=== PATIENT | female | born 1965 | race Caucasian/White ===

== ENCOUNTER 2024-12-07 18:11 | Emergency (ER) | payer MEDICAID, SELFPAY ==
[2024-12-07 18:40] LABS: Collection Type, Urine Clean Catch
[2024-12-07 18:53] LABS: Bacteria,Urine Rare; Bilirubin,Urine Negative (Negative); Blood,Urine Negative (Negative); Clarity,Urine Clear (Clear/Hazy); Color,Urine Colorless (Lt Yel-Yel); Glucose, Urine 4+ (Negative); Ketones,Urine Negative (Negative); Leukocyte Esterase,Urine Negative (Negative); Nitrite,Urine Negative (Negative); PH,Urine 6.5 (5.0-7.0); Protein,Urine Negative (Neg - Trace); RBC,Urine 4 /hpf (0-3); Specific Gravity,Urine 1.030 (1.001-1.035); Squamous Epithelial Cell,Urine 11 /hpf (0-5); Urobilinogen,Urine Negative mg/dL (0.0-1.0); WBC,Urine 5 /hpf (0-5)
[2024-12-07 18:54] VITALS: BP 134/79; PULSE 100; RESP 20; TEMP 36.4; O2SAT 98
[2024-12-07 18:55] LABS: Amphetamine/Methamp Scrn,U Negative (Negative); Barbiturate Screen,Urine Negative (Negative); Benzodiazepines Screen,Urine Negative (Negative); Benzoylecgonine Screen, Ur Negative (Negative); Fentanyl Screen,Urine Negative (Negative); Opiate Screen,Urine Negative (Negative); THC Screen,Urine Negative (Negative)
--- NOTE | 2024-12-07 18:57 | XR_ITS ---
Examination: Knee, left, 3 views Technique: Knee AP, lateral, oblique 3 views Date and time of exam: December 07, 2024, 1905 hours INDICATIONS: Injury of the knee today, knee pain FINDINGS: No acute fracture. No dislocation No foreign body IMPRESSION: No acute fracture
--- NOTE | 2024-12-07 18:58 | PD.EDRME ---
Rapid Medical Screening Exam E Arrival date/time: 12/07/24 18:11 This is a case of 59-year-old female with history of diabetes came in in the emergency room due to high blood sugar and fall injury patient states that he she hit his head but no loss of consciousness currently complaining of left knee pain patient also having headache and dizziness persistence of the symptoms this patient decided to start consulted in the emergency room Chief Complaint: Fall Time Seen by Provider: 12/07/24 18:57 Vital signs: Vital Signs Temperature 97.6 F 12/07/24 18:54 Pulse Rate 100 12/07/24 18:54 Respiratory Rate 20 12/07/24 18:54 Blood Pressure 134/79 H 12/07/24 18:54 Pulse Oximetry (%) 98 12/07/24 18:54 Oxygen Delivery Method Room Air 12/07/24 18:54
[2024-12-07 19:32] LABS: Basophils # (Auto) 0.1 Thou/mm3 (0.0-0.2); Basophils % (Auto) 1 % (0-2.5); Eosinophils # (Auto) 0.2 Thou/mm3 (0.0-0.5); Eosinophils % (Auto) 3 % (0-10); Hematocrit 45.1 % (36.0-46.0); Hemoglobin 14.7 g/dL (12.0-16.0); Immature Granulocytes Auto 0.02 Thou/mm3 (0.00-0.00); Lymphocytes # (Auto) 2.1 Thou/mm3 (1.0-4.8); Lymphocytes % (Auto) 24 % (10-50); Mean Corpuscular HGB Conc 32.6 g/dl (31.0-37.0); Mean Corpuscular Hemoglobin 26.7 pg (25.0-35.0); Mean Corpuscular Volume 82 fL (80-100); Monocytes # (Auto) 0.6 Thou/mm3 (0.0-0.8); Monocytes % (Auto) 7 % (0-12); Neutrophils # (Auto) 5.6 Thou/mm3 (1.8-7.7); Neutrophils % (Auto) 66 % (37-80); Nucleated Red Blood Cell # 0.00 Thou/mm3 (0.00-0.00); Nucleated Red Blood Cell % 0 /100 WBC (0); Platelet Count 227 Thou/mm3 (140-440); RDW Standard Deviation 47.1 fL (36.4-46.3); Red Blood Count 5.51 Miln/mm3 (4.00-5.20); White Blood Count 8.6 Thou/mm3 (3.6-11.0)
[2024-12-07 20:02] LABS: Alanine Aminotransferase < 7 U/L (10-49); Albumin, Serum 4.5 gm/dL (3.5-5.0); Albumin/Globulin Ratio 1.5 (1.2-2.2); Alcohol, Blood Medical < 3.0 mg/dL (0-10.0); Alkaline Phosphatase 150 U/L (46-116); Anion Gap 13 (7-16); Aspartate Amino Transferase 12 U/L (0-34); BUN/Creatinine Ratio 8 Ratio (12-20); Bilirubin,Total < 0.2 mg/dL (0.3-1.2); Blood Urea Nitrogen 8 mg/dL (9-23); Calcium 9.6 mg/dL (8.3-10.6); Calcium (Corrected) 9.6 mg/dL (8.5-10.1); Carbon Dioxide 23.5 mMol/L (20.0-31.0); Chloride 100 mMol/L (98-107); Creatinine (Component) 1.0 mg/dL (0.6-1.3); Globulin 3.0 gm/dL (2.3-3.5); Glucose 321 mg/dL (74-106); Osmolality,Calculated 282 (275-295); Potassium 3.9 mMol/L (3.4-5.1); Sodium 136 mMol/L (136-145); Total Protein 7.5 gm/dL (5.7-8.2); eGFR > 60 See Note
--- NOTE | 2024-12-07 21:40 | EDNOTE_ITS ---
ED Fall Injury RME/HPI General Chief Complaint: Fall Stated Complaint: Fell 2 days ago, states blood sugar was 458 Time Seen by Provider: 12/07/24 18:57 Arrival date/time: 12/07/24 18:11 RME / HPI RME / HPI Narrative: 12/07/24 18:11 This is a case of 59-year-old female with history of diabetes came in in the emergency room due to high blood sugar and fall injury patient states that he she hit his head but no loss of consciousness currently complaining of left knee pain patient also having headache and dizziness persistence of the symptoms this patient decided to start consulted in the emergency room DR. VICENTE MAIN ED EVALUATION: Patient reports Hx of fully controlled DM off medication for extended period of time presents after falling 2 days ago striking right lateral chest and head. No LOC, neck pain, or RUE radiculopathy. Denies vomiting. PMH: Type II DM PSH: None Allergies: None reported Social: Non-drinker, Non-smoker, No illicit drug use Related Data Previous Rx's ?Medication ?Instructions ?Recorded ibuprofen 600 mg tablet 600 mg PO Q6H #30 tabs 05/09 acetaminophen 325 mg tablet 650 mg (2 x 325 mg) PO QID #30 tabs 12/07/24 (Tylenol) Allergies Allergy/AdvReac Type Severity Reaction Status Date / Time lactose Allergy Mild GI UPSET Verified 12/07/24 18:16 latex Allergy Unknown SWELLING Verified 12/07/24 18:16 albuterol AdvReac Intermediate DIFF. Verified 12/07/24 18:16 BREATHING Review of Systems Review of Systems Systems Reviewed: All systems reviewed, normal except as documented Past Medical History Past Medical History ENDOCRINE: Positive Diabetes Mellitus Type 2 Social History SMOKING STATUS: Current every day smoker ED Exam Narrative Physical exam: GEN. APPEARANCE: The patient is alert awake oriented X-3 in no distress, lying down comfortably, does not look ill/toxic. Patient has good eye contact. Patient is cooperative. Appears slightly slow to response, although accurate. VITALS: All vitals were reviewed and the pulse ox is 98% on room air which is normal according to my interpretation. HEENT: Normocephalic, atraumatic. Pupils are equal and reactive. No nystagmus, normal fundosopic exam. Oral mucosa is moist. Patent Nares NECK: Supple, nontender, no thyromegaly, no meningismus, no JVD, no step offs CHEST: Symmetrical, atraumatic, and with equal expansion , Right lateral chest mildly tender to palpation, no deformity and no crepitus. CARDIOVASCULAR: Heart regular rhythm no murmur or gallop rub or extra beats. LUNGS: Clear to auscultation bilaterally with symmetrical chest rise. No laboring tachypnea or wheezing. No intercostal subcostal retraction. No rales and no rhonchi. ABDOMEN: Soft, flat, nontender to palpation, no guarding or rebound tenderness. There are no abnormal masses palpated. Active and normal bowel sounds. EXTREMITIES: Nontender. No edema. No cyanosis. Patient is able to move all 4 extremities well, with full ROM and good CSM. SKIN: Warm and dry, no jaundice or rashes noted. MUSCULOSKELETAL: No lubar or midline bony tenderness. There is no CVA tenderness. No paraspinal muscle spasm or tenderness. NEURO: Patient is FERGUSON x 4, Cranial nerves II through XII grossly intact. There is no focal neurologic deficits noted. GCS is 15, PNS and [employer] appear grossly intact. Gait slightly wide-based, normal finger to nose. PSYCHIATRIC: Patient is in normal mood and affect, cooperative, no SI or HI or hallucinations. Course Quality Measures none Orders Category Date Time Status CT head/brain wo con Stat Exams 12/07/24 22:18 Completed XR knee LT 3V Stat Exams 12/07/24 18:57 Completed Alcohol, Blood Medical Stat Lab 12/07/24 19:22 Completed CBC Stat Lab 12/07/24 19:22 Completed CMP [Comprehensive Metabolic Panel] Stat Lab 12/07/24 19:22 Completed Drug Screen,Urine Stat Lab 12/07/24 18:35 Completed Urinalysis Stat Lab 12/07/24 18:35 Completed Insulin Regular Med 12/07/24 22:17 Discontinued 6 unit SC X1 ONE Vital Signs Vital signs: Vital Signs Temperature 97.6 F 12/07/24 18:54 Pulse Rate 100 12/07/24 18:54 Respiratory Rate 20 12/07/24 18:54 Blood Pressure 134/79 H 12/07/24 18:54 Pulse Oximetry (%) 98 10/11/25 18:54 Oxygen Delivery Method Room Air 12/07/24 18:54 Fall MDM Narrative MDM Narrative:: Scribe Attestation: I, Lanny Valadez, am scribing for and in the presence of Dr. Vicente. Provider Notation: Although this document has been carefully reviewed, there may still be some phonetic and other typographical errors. These errors are purely grammatical due to imperfections in the software program and should not be construed in any way to compromise the substance of the patient's medical care during this visit. Patient reports Hx of fully controlled DM off medication for extended period of time presents after falling 2 days ago striking right lateral chest and head. No LOC, neck pain, or RUE radiculopathy. Please see PE findings. Laboratory markers including CBC, demonstrate HNH 14/45, platelet count, no left shift or bandemia. Serum chemistries essentially unremarkable. UA without evidence of infection although noted elevated glucose of 321. CO2 is normal at 23. Toxicology screen was negative. Alcohol is undetected. Knee x-rays obtained were unremarkable. EKG demonstrated equivocal lateral wall ST segment depression. Patient administered 6 units regular insulin subcutaneously. Will be referred for CT of the head/brain, and if unremarkable, will discharge to home with compliance emphasized. Final diagnoses include right chest wall contusion, chronic disequilibrium, hyperglycemia without ketosis, and medication non-compliance. Patient data External records reviewed:: [facility] previous records (Reviewed prior ED records from 05/10/23. Patient was seen for Atypical chest pain.) Clinical information provided by:: patient Social determinants that could affect healthcare access:: none Patient has the following chronic illnesses:: Type II DM How is presenting disease/condition affected by chronic disease/condition?: exacerbated by Evaluation data The following diagnostics were reviewed and interpreted by me:: lab results and radiology exam(s) Lab and/or radiology exams considered but not ordered:: None Interpretation Summary: RADIOLOGY Knee X-Ray: FINDINGS: No acute fracture. No dislocation No foreign body IMPRESSION: No acute fracture Medications / Prescriptions Medications or Prescriptions considered but not ordered:: None Medication administrations:: Medication Administration History Discontinued Medications Insulin Human Regular (Insulin Hum Regular 1 Unit/0.01 Ml (Per Unit)) 6 unit SC X1 ONE Stop: 12/07/24 22:18 Last Admin: 12/07/24 22:58 Dose: 6 unit Documented By: COURT Co-signed By: RUTH See above if any Consultations Consultation(s) initiated? (list below): No Diagnosis Fall Differential Diagnosis: syncope, compression fracture and other (Internal knee derangement, Knee sprain/strain) Most likely diagnosis given after review of the tests above:: Right chest wall contusion, chronic disequilibrium, hyperglycemia without ketosis, head contusion, and medication non-compliance. Admission Indicated Admission indicated?: not indicated Explain why admission is indicated or not indicated:: Patient does not meet admission criteria Admission Request Was there a request for admission?: No Disposition Plan Disposition Plan: Discharge Discharge Attestation Discharge Attestation: The patient and all family members were given an opportunity to ask questions and understood the discharge instructions. Discharge instructions specifically effects, indications for sooner follow up or return to the emergency department, and the expected course of current diagnosis. Patient condition: Stable Discharge Plan Plan Patient Disposition: HOME (Self Care) Discharge Disposition comment: Stable Prescriptions/Referrals Prescriptions/Med Rec: New acetaminophen [Tylenol] 325 mg tablet 650 mg PO QID Qty: 30 0RF No Action ibuprofen 600 mg tablet 600 mg PO Q6H Qty: 30 0RF Referrals: No Primary/Family,Physician [Primary Care Provider] - In 1 week Problem List Clinical Impression: Contusion of head, Chest wall contusion, Contusion of right chest wall, Disequilibrium, Hyperglycemia without ketosis, Noncompliance with medications Patient/Caregiver Discharge Instructions Discharge Activity: activity as tolerated Diet Instructions: Avoid simple sugars. Education Materials: High Blood Sugar (Hyperglycemia), ED Chest Wall Contusion Additional Instructions: Emphasize compliance regarding current oral medication regimen. Ice compresses to affected areas. Medication as directed. Print Language: Bruneian Stand Alone Forms: [employer] Award Info., Patient Portal Info Letter
--- NOTE | 2024-12-07 22:18 | XR_ITS ---
Examination: CT brain head without contrast. 2-D sagittal coronal reconstructions Date and time of exam: December 07, 2024 10:40 p.m. INDICATIONS: Patient fell 2 days ago with injury to the head, head pain CTDI: vol (mGy): 45.9 DLP: (mGycm): 977 Technique: Multiple CT axial sections of the brain have been obtained, 5 mm slice thickness. Contrast has not been administered. 2-D sagittal, coronal reconstructions have been obtained Low dose protocols were performed. One or more of the following dose reduction techniques were used; automated exposure control, adjustment of the mA and/or KV according to patient size, use of iterative reconstruction technique. Findings: No significant ventricular enlargement. Intra-axial or extra-axial hemorrhage density is not seen. No mass effect or midline shift Basal cisterns are not remarkable. Fourth ventricle is midline. Cranial vault intact. Impression: Negative for acute hemorrhage, mass effect or midline shift
[2024-12-07] MEDS: INSULIN HUM REGULAR 1 UNIT/0.01 ML (PER UNIT) 6 UNIT SC (22:58)
== END 2024-12-08 00:03 | disposition home or self-care (01) ==
PROVIDERS: Emergency Provider Emergency Medicine
DX: S00.93XA Contusion of unspecified part of head, initial encounter (principal); S20.211A Contusion of right front wall of thorax, initial encounter; E11.65 Type 2 diabetes mellitus with hyperglycemia; Z91.148 Patient's other noncompliance with medication regimen for other reason; W19.XXXA Unspecified fall, initial encounter
CPT/HCPCS: 36415; 70450; 73562; 80053; 80307; 80320; 81001; 85025; 99283; J1815; G0480

== ENCOUNTER 2024-12-22 14:59 | Inpatient (IN) | payer MEDICAID, SELFPAY ==
[2024-12-22 15:11] VITALS: BP 146/85; PULSE 86; RESP 18; TEMP 36.8; O2SAT 97; BMI 21.2
--- NOTE | 2024-12-22 15:22 | XR_ITS ---
Examination: CT brain head without contrast. 2-D sagittal coronal reconstructions Date and time of exam: December 22, 2024, 1534 hours INDICATIONS: Patient fell today with injury of the head, head pain CTDI: vol (mGy): 43.8 DLP: (mGycm): 992 Technique: Multiple CT axial sections of the brain have been obtained, 5 mm slice thickness. Contrast has not been administered. 2-D sagittal, coronal reconstructions have been obtained Low dose protocols were performed. One or more of the following dose reduction techniques were used; automated exposure control, adjustment of the mA and/or KV according to patient size, use of iterative reconstruction technique. Findings: No significant ventricular enlargement. Intra-axial or extra-axial hemorrhage density is not seen. No mass effect or midline shift Basal cisterns are not remarkable. Fourth ventricle is midline. Cranial vault intact. Impression: Negative for acute hemorrhage, mass effect or midline shift
--- NOTE | 2024-12-22 15:22 | EKG_ITS ---
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
--- NOTE | 2024-12-22 15:23 | EDRME_ITS ---
Rapid Medical Screening Exam [facility] Arrival date/time: 12/22/24 14:59 This is a 59-year-old female that comes into the emergency room with multiple complaints. Per patient family member patient keeps falling. Patient has had multiple falls at home. Patient states she feels imbalanced and dizzy. She states she is also nauseous. Patient complains of right hip pain as well. Patient complains of generalized weakness. Patient denies chest pain shortness of breath I have greeted and performed a focused initial assessment of this patient. Initial appropriate labs ordered at this time. A comprehensive ED assessment and evaluation of the patient and analysis of all test and completion of medical decision making process will be conducted by additional ED provider. Chief Complaint: Weakness Time Seen by Provider: 12/22/24 15:10 Vital signs: Vital Signs Temperature 98.3 F 12/22/24 15:11 Pulse Rate 86 12/22/24 15:11 Respiratory Rate 18 12/22/24 15:11 Blood Pressure 146/85 H 12/22/24 15:11 Pulse Oximetry (%) 97 12/22/24 15:11 Oxygen Delivery Method Room Air 12/22/24 15:11 Exam: Alert and awake, breathing even and unlabored skin warm and dry Clinical Impression: Stroke versus NC versus vertigo differential.
--- NOTE | 2024-12-22 15:25 | XR_ITS ---
Examination: Bilateral hips, AP pelvis, 5 views Technique: AP, lateral views both hips, AP pelvis, 5 views Exam date and time: December 22, 2024, 1531 hours INDICATIONS: Patient fell today with injury to both hips, bilateral hip pain. FINDINGS: No acute right or left hip fracture or hip dislocation Bones of the pelvis intact IMPRESSION: No acute hip or pelvic fracture Recommend 1 day follow-up if hip pain persists
[2024-12-22 16:05] LABS: Basophils # (Auto) 0.1 Thou/mm3 (0.0-0.2); Basophils % (Auto) 1 % (0-2.5); Eosinophils # (Auto) 0.2 Thou/mm3 (0.0-0.5); Eosinophils % (Auto) 3 % (0-10); Hematocrit 42.3 % (36.0-46.0); Hemoglobin 13.9 g/dL (12.0-16.0); Immature Granulocytes Auto 0.02 Thou/mm3 (0.00-0.00); Lymphocytes # (Auto) 1.7 Thou/mm3 (1.0-4.8); Lymphocytes % (Auto) 22 % (10-50); Mean Corpuscular HGB Conc 32.9 g/dl (31.0-37.0); Mean Corpuscular Hemoglobin 27.5 pg (25.0-35.0); Mean Corpuscular Volume 84 fL (80-100); Monocytes # (Auto) 0.5 Thou/mm3 (0.0-0.8); Monocytes % (Auto) 7 % (0-12); Neutrophils # (Auto) 5.3 Thou/mm3 (1.8-7.7); Neutrophils % (Auto) 68 % (37-80); Nucleated Red Blood Cell # 0.00 Thou/mm3 (0.00-0.00); Nucleated Red Blood Cell % 0 /100 WBC (0); Platelet Count 244 Thou/mm3 (140-440); RDW Standard Deviation 49.1 fL (36.4-46.3); Red Blood Count 5.05 Miln/mm3 (4.00-5.20); White Blood Count 7.9 Thou/mm3 (3.6-11.0)
[2024-12-22 16:15] LABS: INR 0.9 (0.9-1.3); Prothrombin Time 10.0 Seconds (9.0-12.2)
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
[2024-12-22 16:38] LABS: B-Type Natriuretic Peptide 77 pg/mL (0-100)
[2024-12-22 16:45] LABS: Alanine Aminotransferase < 7 U/L (10-49); Albumin, Serum 4.4 gm/dL (3.5-5.0); Albumin/Globulin Ratio 2.0 (1.2-2.2); Alkaline Phosphatase 113 U/L (46-116); Anion Gap 10 (7-16); Aspartate Amino Transferase 13 U/L (0-34); BUN/Creatinine Ratio 10 Ratio (12-20); Bilirubin,Total < 0.2 mg/dL (0.3-1.2); Blood Urea Nitrogen 8 mg/dL (9-23); Calcium 9.1 mg/dL (8.3-10.6); Calcium (Corrected) 9.1 mg/dL (8.5-10.1); Carbon Dioxide 22.2 mMol/L (20.0-31.0); Chloride 103 mMol/L (98-107); Creatinine (Component) 0.8 mg/dL (0.6-1.3); Estimated Creatinine Clearance 64.2 mL/min (>60); Globulin 2.2 gm/dL (2.3-3.5); Glucose 356 mg/dL (74-106); Osmolality,Calculated 282 (275-295); Potassium 4.2 mMol/L (3.4-5.1); Sodium 135 mMol/L (136-145); Total Protein 6.6 gm/dL (5.7-8.2); Troponin I < 0.002 ng/mL (0.0-0.045); eGFR > 60 See Note
[2024-12-22 17:53] VITALS: BP 114/84; PULSE 72; RESP 16; TEMP 36.9; O2SAT 95
--- NOTE | 2024-12-22 18:08 | EDNOTE_ITS ---
Emergency Room Addendum Addendum Narrative: 1800: Care assumed from Dr. Lawrence, the previous shift emergency physician. Past medical, surgical, social and family history reviewed. Vitals and home medications reviewed. Results and treatment plan discussed. I will assume the care of the patient at this time and will follow the patient. Please refer to the emergency department record for history and examination from initial visit. 59yo female presenting after having frequent falls over the last several days and found to have right-sided weakness. On clinical exam, patient does have RLE>RUE weakness, subtle facial asymmetry, and right pronator drift. Patient placed in nonemergent stroke protocol given duration of symptoms. Initial CT head was negative. Will obtain CTA head and neck vessels to r/o LVO. Teleneurology consulted and recommends administering full dose Plavix (75mg per day after). TPA not considered given duration of symptoms. CTA of head neck showed 95% critical stenosis of the proximal left internal carotid likely culprit vessel of the patient's symptoms will require transfer for consideration for carotid endarterectomy. 2031: Discussed case with [facility]'s transfer center. Discussed patients ED course, exam findings, labs, and radiology results. Spoke with Dr. Magana, [facility] lar surgeon, who requests more specifics about the patient's CTA and to call him back. 2340: Discussed case with Dr. Magana from vascular surgery at [facility] regarding possible transfer. Discussed patients ED course, exam findings, labs, and radiology results. Recommends giving the patient Plavix and Aspirin, and obtaining MRI in the morning. Doppler US performed, demons retrograde flow within proximal common carotid art and lsught antegrade flow within right ICA, suggesting some degree of collateralization. Will add aspirin and obtain MRI/MRA in the AM. Patient will likely need to be considered for vascular evaluation. AM provider to follow-up regarding MRI. Dx: Subacute CVA RADIOLOGY RESULTS: [place] Report Signed Patient: LINDA NGUYỄN. Record#: [id number] Birthdate: 1965 Age/Sex: 59 / F Location: [facility] Attending Dr: Ordering Physician: Bin Baker DO Date of Service: 12/22/24 Procedure(s): CT angio stroke protocol Accession Number(s): [id number] cc: Briana Morataya PA-C; Bin Baker DO; Bahman Rogel MD~ Examination: CTA carotids with intravenous contrast CTA brain, head with intravenous contrast. 2-D sagittal, coronal reconstructions. 3-D reconstructions. Exam date and time: December 22, 2024, 1846 hours INDICATIONS: Onset right leg weakness and body numbness today clinical diagnosis stroke CTDI: vol (mGy) 18.6 DLP: (mGycm) 418 Technique: Multiple CTA axial brain, head carotid images post intravenous contrast injection 75 cc, [id number]. 2-D sagittal, coronal reconstructions. 3-D reconstructions, 3-D post processing including vascular maximum intensity projection images. Low dose protocols were performed. One or more of the following dose reduction techniques were used; automated exposure control, adjustment of the mA and/or KV according to patient size, use of iterative reconstruction technique. Findings: No filling of the proximal and mid left common carotid artery Filling of the distal most left common carotid artery axial image 148 Critical stenosis 95% left carotid bifurcation and origin and proximal portion left internal carotid artery Attenuated left internal carotid artery does fill and petrous and juxtasellar portions No critical stenosis right common carotid artery or internal carotid artery Dominant left vertebral artery in the neck Intracranial vertebral arteries basilar artery and posterior cerebral branches fill with no large vessel occlusions M1 segments middle cerebral arteries middle cerebral artery trifurcation vessels and anterior cerebral arteries fill with no large vessel occlusions IMPRESSION: No filling of the proximal and mid left common carotid artery Filling of the distalmost left common carotid artery, critical stenosis 95% left carotid bifurcation and origin and proximal portion left internal carotid artery No cerebral large vessel arterial occlusions or thrombus Recommend brain MRI/MRA follow-up pre and postcontrast Dictated By: Bahman Rogel MD Signed By: <Electronically signed by Bahman Rogel MD in OV> 12/22/241910 [facility] Report Signed Patient: LINDA NGUYỄN. Record#: [id number] Birthdate: 1965 Age/Sex: 59 / F Location: [facility] Attending Dr: Ordering Physician: Bin Baker DO Date of Service: 12/22/24 Procedure(s): US carotid duplex Accession Number(s): [id number] cc: Briana Morataya PA-C; Bin Baker DO; Bahman Rogel MD~ Examination: Carotid arterial duplex scan, ultrasound. Date and time of exam: December 22, 2024, 1010 hours INDICATIONS: Onset weakness today Technique: Multiple sonographic images have been obtained of the carotid arteries and vertebral arteries, B-mode/grayscale imaging and Doppler spectral analysis and color flow Peak systolic and diastolic velocities have been recorded. Systolic diastolic ratios have been calculated. Findings: Right peak systolic velocities: Distal internal carotid artery peak systolic velocity is 0.6 M/sec Proximal internal carotid artery peak systolic velocity is 0.9 M/sec Carotid bifurcation peak systolic velocity is 0.9 M/sec External carotid artery peak systolic velocity is 0.4 M/sec Vertebral artery flow is antegrade. Left peak systolic velocities: Distal internal carotid artery peak systolic velocity is 1.0 M/sec Proximal internal carotid artery peak systolic velocity is 1.2 M/sec Carotid bifurcation peak systolic velocity is 0.2 M/sec External carotid artery peak systolic velocity is 0.4 M/sec Vertebral artery flow is antegrade Impression: Right internal carotid artery demonstrates 10 to 20% stenosis. Left common carotid artery devoid of color flow Retrograde flow in the left common carotid artery Dictated By: Bahman Rogel MD Signed By: <Electronically signed by Bahman Rogel MD in OV> 12/22/24 1471 Critical Care Time: 45 minutes The high probability of sudden, clinically significant deterioration in the patient?s condition required the highest level of my preparedness to intervene urgently. The services I provided to this patient were to treat and/or prevent clinically significant deterioration. Services included the following: chart data review, reviewing nursing notes and/or old charts, documentation time, solutions consultant collaboration regarding findings and treatment options, medication orders and management, direct patient care, vital sign assessments and ordering, interpreting and reviewing diagnostic studies and lab tests. Aggregate critical care time includes only time during which I was engaged in work directly related to the patient?s care, as described above, whether at bedside or elsewhere in the Emergency Department. It did not include time spent performing other reported procedures or the services of residents, students, nurses or physician assistants.
--- NOTE | 2024-12-22 18:28 | XR_ITS ---
Examination: CTA carotids with intravenous contrast CTA brain, head with intravenous contrast. 2-D sagittal, coronal reconstructions. 3-D reconstructions. Exam date and time: December 22, 2024, 1846 hours INDICATIONS: Onset right leg weakness and body numbness today clinical diagnosis stroke CTDI: vol (mGy) 18.6 DLP: (mGycm) 418 Technique: Multiple CTA axial brain, head carotid images post intravenous contrast injection 75 cc, [id number]. 2-D sagittal, coronal reconstructions. 3-D reconstructions, 3-D post processing including vascular maximum intensity projection images. Low dose protocols were performed. One or more of the following dose reduction techniques were used; automated exposure control, adjustment of the mA and/or KV according to patient size, use of iterative reconstruction technique. Findings: No filling of the proximal and mid left common carotid artery Filling of the distal most left common carotid artery axial image 148 Critical stenosis 95% left carotid bifurcation and origin and proximal portion left internal carotid artery Attenuated left internal carotid artery does fill and petrous and juxtasellar portions No critical stenosis right common carotid artery or internal carotid artery Dominant left vertebral artery in the neck Intracranial vertebral arteries basilar artery and posterior cerebral branches fill with no large vessel occlusions M1 segments middle cerebral arteries middle cerebral artery trifurcation vessels and anterior cerebral arteries fill with no large vessel occlusions IMPRESSION: No filling of the proximal and mid left common carotid artery Filling of the distalmost left common carotid artery, critical stenosis 95% left carotid bifurcation and origin and proximal portion left internal carotid artery No cerebral large vessel arterial occlusions or thrombus Recommend brain MRI/MRA follow-up pre and postcontrast
--- NOTE | 2024-12-22 18:34 | ESCONSULT_ITS ---
Tele Neuro Consultation Consultation Date 12/22/24 Most Recent Vital Signs Last Vital Signs Temp 98.5 F 12/22/24 17:53 Pulse 72 12/22/24 17:53 Resp 16 12/22/24 17:53 BP 114/84 12/22/24 17:53 Pulse Ox 95 12/22/24 17:53 O2 Del Method Room Air 12/22/24 15:11 Laboratory-Coagulation Panel PT 10.0 Seconds (9.0-12.2) 12/22/24 15:49 INR 0.9 (0.9-1.3) 12/22/24 15:49 Consultation Narrative [facility] TeleNeurology Consult Services Stat Consult Patient Name: LINDA NGUYỄN Date of : 1965 Identification Number: Date of Service: 12/22/2024 16:44:23 Diagnosis: ? I63.89 - Cerebrovascular accident (CVA) due to other mechanism ([facility]) Impression 59-year-old female history of tobacco use, hypertension, diabetes, migraines who I am seeing as a stat consult for right-sided weakness and falls. Patient being seen for falls, right-sided weakness over the last 2 to 3 days. Neuroexam showing right upper and lower extremity drift, no evidence of aphasia. CT head showing no acute intracranial process per radiology read. At this time, I do have concern for acute stroke. Would suggest MRI brain noncontrast, load with clopidogrel 300 mg x 1 and continue clopidogrel 75 mg daily starting tomorrow,. Patient also has bad headache and history of migraines, complex migraine also on differential. She can be treated with migraine abortives as below. Patient not a thrombolytic candidate with last known well 2 to 3 days ago. Recommendations: Our recommendations are outlined below. MRI head without contrast CTA head and neck with contrast if MRI + stroke Plavix 300 mg x1 Plavix 75 mg daily ECHO Migraine abortives: reglan, toradol, IV magnesium 2 gms, fioricet Lipid panel Hemoglobin A1c Neuro checks q4 hrs Continue with Telemetry Consultations : Physical therapy/Occupational therapy -- Metrics: Dispatch Time: 12/22/2024 16:44:23 Callback Response Time: 12/22/2024 16:44:42 Primary Provider Notified of Diagnostic Impression and Management Plan on: 12/22/2024 18:30:52 Chief Complaint: R side weakness, falls History of Present Illness: Patient is a 59 year old Female. 59-year-old female history of tobacco use, hypertension, diabetes, migraines who I am seeing as a stat consult for right-sided weakness and falls. Patient states that she has been falling the last couple of days, she feels like her right side is weaker. She was having difficulty putting her shoes on today and family wanted her to come in to get evaluated. Patient denies history of a stroke. She is supposed to be on Plavix but not taking it currently. She does have history of migraines and has a really bad headache currently. She usually takes Fioricet for her migraines. Blood pressure 114/84, pulse 72 Past Medical History: ? Hypertension ? Diabetes Mellitus ? Migraine Headaches Medications: No Anticoagulant use No Antiplatelet use Reviewed EMR for current medications Allergies: Reviewed Social History: Smoking: Yes Family History: There is no family history of premature cerebrovascular disease pertinent to this consultation ROS : 14 Points Review of Systems was performed and was negative except mentioned in HPI. Past Surgical History: There Is No Surgical History Contributory To Today?s Visit Examination: BP(114/84), Pulse(72), 1A: Level of Consciousness - Alert; keenly responsive + 0 1B: Ask Month and Age - Both Questions Right + 0 1C: Blink Eyes & Squeeze Hands - Performs Both Tasks + 0 2: Test Horizontal Extraocular Movements - Normal + 0 3: Test Visual Perdomo - No Visual Loss + 0 4: Test Facial Palsy (Use Grimace if Obtunded) - Normal symmetry + 0 5A: Test Left Arm Motor Drift - No Drift for 10 Seconds + 0 5B: Test Right Arm Motor Drift - Drift, hits bed + 2 6A: Test Left Leg Motor Drift - No Drift for 5 Seconds + 0 6B: Test Right Leg Motor Drift - Some Effort Against [place] + 2 7: Test Limb Ataxia (FNF/Heel-Dunn) - No Ataxia + 0 8: Test Sensation - Normal; No sensory loss + 0 9: Test Language/Aphasia - Normal; No aphasia + 0 10: Test Dysarthria - Mild-Moderate Dysarthria: Slurring but can be understood + 1 11: Test Extinction/Inattention - No abnormality + 0 NIHSS Score: 5 Spoke with : Dr Bryn Lewis This consult was conducted in real time using interactive audio and video technology. Patient was informed of the technology being used for this visit and agreed to proceed. Patient located in hospital and provider located at home/office setting. Patient is being evaluated for possible acute neurologic impairment and high probability of imminent or life - threatening deterioration.I spent total of 35 minutes providing care to this patient, including time for face to face visit via telemedicine, review of medical records, imaging studies and discussion of findings with providers, the patient and / or family. Dr Sarthak Pate [facility] For Inpatient follow-up with [facility] physician please call [facility] at . As we are not an outpatient service for any post hospital discharge needs please contact the hospital for assistance. If you have any questions for the [facility] physicians or need to reconsult for clinical or diagnostic changes please contact us via [facility] at . Non-radiologist review of imaging performed to assist with emergent clinical decision-making. Remote physician workstations do not possess the same resolution, calibration, or diagnostic capabilities as hospital-based radiology reading stations, and formal radiologist read is necessary. Signature : Sarthak Pate
[2024-12-22] MEDS: CLOPIDOGREL BISULFATE 75 MG TABLET 300 MG PO (19:50)
[2024-12-22 19:54] VITALS: BP 122/86; PULSE 76; RESP 18; TEMP 36.6; O2SAT 95
[2024-12-22 20:20] VITALS: BP 118/79; PULSE 72; RESP 18; O2SAT 95
--- NOTE | 2024-12-22 22:00 | XR_ITS ---
Examination: Carotid arterial duplex scan, ultrasound. Date and time of exam: December 22, 2024, 1010 hours INDICATIONS: Onset weakness today Technique: Multiple sonographic images have been obtained of the carotid arteries and vertebral arteries, B-mode/grayscale imaging and Doppler spectral analysis and color flow Peak systolic and diastolic velocities have been recorded. Systolic diastolic ratios have been calculated. Findings: Right peak systolic velocities: Distal internal carotid artery peak systolic velocity is 0.6 M/sec Proximal internal carotid artery peak systolic velocity is 0.9 M/sec Carotid bifurcation peak systolic velocity is 0.9 M/sec External carotid artery peak systolic velocity is 0.4 M/sec Vertebral artery flow is antegrade. Left peak systolic velocities: Distal internal carotid artery peak systolic velocity is 1.0 M/sec Proximal internal carotid artery peak systolic velocity is 1.2 M/sec Carotid bifurcation peak systolic velocity is 0.2 M/sec External carotid artery peak systolic velocity is 0.4 M/sec Vertebral artery flow is antegrade Impression: Right internal carotid artery demonstrates 10 to 20% stenosis. Left common carotid artery devoid of color flow Retrograde flow in the left common carotid artery
[2024-12-23] VITALS (10 sets, daily range): BP systolic 92–111; BP diastolic 58–87; PULSE 62–82; RESP 12–19; TEMP 36.7–37.1; O2SAT 92–97
--- NOTE | 2024-12-23 | XR_ITS ---
Examinations: MRI Brain without intravenous contrast. MRI brain with intravenous contrast MRA brain with intravenous contrast. MRA brain without intravenous contrast MRA neck with intravenous contrast Date and time of exam: December 23, 2024, 0931 hours INDICATIONS: Onset right-sided body weakness this week subtle facial asymmetry Technique: Multiple axial and sagittal images of the brain have been obtained Siemens high-resolution 1.5 Graciela short bore scanner is utilized. Sagittal sections, T1-weighted, TR 500, TE 14 Axial sections proton density and T2-weighted, TR 3,000, TE 34, TR 3,000, TE 91 Inversion recovery axial images, TR 9,260, TE 111, TI 2,500 Diffusion weighted images, axial sections, TR 4,800, TE 128, B value 1,000 Axial sections, ADC map, TR 4,800, TE 128. Contrast images have been obtained post intravenous 20 cc Gadolinium. T1-weighted axial and coronal images post contrast have been obtained. Angiographic images of neck and brain are obtained pre and post contrast. 3-D post processing performed, including brain, extracranial neck arterial maximum intensity projections Findings: Sellaturcica is not enlarged. The optic chiasm and infundibular stalk are not remarkable. Prepontine and interpeduncular cisterns are not enlarged. No localized enlargement of the medulla or melissa. Fourth ventricle and cerebellar tonsils normal in position. Subacute hemorrhage is not seen. Fourth ventricle is midline. Mass in the cerebellopontine angle region is not evident. 7th and 8th nerve complexes exhibits symmetry. Globes are symmetrical with no retro-orbital mass. Increased white matter signal moderate Diffusion-weighted images demonstrate embolic type foci restricted diffusion, left frontal lobe, left parietal lobe with signal deficit on the ADC map. Mass-effect upon the ventricular system is not identified. Abnormal contrast enhancement is evident, subtle enhancement at the level of the parietal infarcts. 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
[2024-12-23 01:01] LABS: Collection Type, Urine Voided
[2024-12-23 01:08] LABS: Bilirubin,Urine Negative (Negative); Blood,Urine Negative (Negative); Clarity,Urine Clear (Clear/Hazy); Color,Urine Lt-Yellow (Lt Yel-Yel); Culture Indicated,Urine Not Indicated; Glucose, Urine 4+ (Negative); Ketones,Urine Negative (Negative); Leukocyte Esterase,Urine Positive (Negative); Nitrite,Urine Negative (Negative); PH,Urine 6.5 (5.0-7.0); Protein,Urine Negative (Neg - Trace); RBC,Urine 4 /hpf (0-3); Specific Gravity,Urine 1.050 (1.001-1.035); Squamous Epithelial Cell,Urine 2 /hpf (0-5); Urobilinogen,Urine Negative mg/dL (0.0-1.0); WBC,Urine 4 /hpf (0-5)
[2024-12-23 01:14] LABS: Amphetamine/Methamp Scrn,U Negative (Negative); Barbiturate Screen,Urine Negative (Negative); Benzodiazepines Screen,Urine Negative (Negative); Benzoylecgonine Screen, Ur Negative (Negative); Fentanyl Screen,Urine Negative (Negative); Opiate Screen,Urine Negative (Negative); THC Screen,Urine Negative (Negative)
--- NOTE | 2024-12-23 07:49 | PC.NURSE ---
Pt GCS 15 upon assumption of care, denies any pain or discomfort at this time, verbalized understanding and in agreement w/POC. Will cont w/POC
[2024-12-23] MEDS: CLOPIDOGREL BISULFATE 75 MG TABLET PO (11:13)
--- NOTE | 2024-12-23 11:54 | PD.EDADDENDU ---
Emergency Room Addendum Addendum Narrative: 0600: Care assumed from Dr. Baker, the previous shift emergency physician. Past medical, surgical, social and family history reviewed. Vitals and home medications reviewed. I will assume the care of the patient at this time, pending MRI and final disposition. Please refer to the emergency department record for history and examination from initial visit.?The following addendum documentation note is intended to reflect any pending information, findings, or radiology results not included in the patient?s initial chart. I spoke with transfer nurse, relayed MRI findings and advised to call [facility] back. 1305: I spoke with vascular surgeon at [facility]. State there is not much for vascular to do at this time. 1325: I spoke with teleneurologist Dr. Pate who had evaluated the patient overnight when the stroke alert was activated. States since vascular reported no further interventions at this time, recommended we admit the patient here and start on Plavix and Aspirin. Does not recommend starting Heparin. 1400: I spoke with hospitalist team C for admission. 1440: Hospitalist team have reviewed patients case and consulted with neurologist Dr. Escalera who recommended transferring to a tertiary center. I spoke with transfer nurse and advised she present the head CT, head/neck CTA, carotid ultrasound, and brain MRI with MRA images to [facility] or other tertiary center to see if they have any other recommendations. 1520: I spoke with transfer nurse at [facility]. Discussed patients PMHx, HPI, ED course, exam findings, labs, and radiology results. States he will present the case to their team and call back. 1530: I spoke with neurointerventionalist at [facility]. He asked for images to be sent over to review. States it is either a critical stenosis or a complete occlusion. States if the patient has a complete occlusion, there is nothing that can be done. He will review the images and call back. 1745: I spoke with Dr. Geovany Harp, head of the stroke team. He stated that the carotid occlusion is chronic and complete, with collateral circulation present. He does not believe revascularization would provide acute benefit and does not recommend transfer at this time. He suspects the embolic event was likely due to a watershed phenomenon, possibly related to hypertension, dehydration, or a recent illness. Dr. Harp confirmed the patient is not a candidate for intervention but expressed interest in seeing her in the outpatient stroke clinic, ideally coordinated with a neurology appointment. Once discharged, the patient should call to schedule follow-up. No intervention is required at this time. 1750: I spoke with hospitalist team B for admission. RADIOLOGY Ordering Physician: Armand Greenberg MD Date of Service: 12/23/24 Procedure(s): MR stroke protocol [facility] Accession Number(s): [id number] cc: Briana Morataya PA-C; Armand Greenberg MD; Bahman Rogel MD~ Examinations: MRI Brain without intravenous contrast. MRI brain with intravenous contrast MRA brain with intravenous contrast. MRA brain without intravenous contrast MRA neck with intravenous contrast Date and time of exam: December 23, 2024, 0931 hours INDICATIONS: Onset right-sided body weakness this week subtle facial asymmetry Technique: Multiple axial and sagittal images of the brain have been obtained Siemens high-resolution 1.5 Graciela short bore scanner is utilized. Sagittal sections, T1-weighted, TR 500, TE 14 Axial sections proton density and T2-weighted, TR 3,000, TE 34, TR 3,000, TE 91 Inversion recovery axial images, TR 9,260, TE 111, TI 2,500 Diffusion weighted images, axial sections, TR 4,800, TE 128, B value 1,000 Axial sections, ADC map, TR 4,800, TE 128. Contrast images have been obtained post intravenous 20 cc Gadolinium. T1-weighted axial and coronal images post contrast have been obtained. Angiographic images of neck and brain are obtained pre and post contrast. 3-D post processing performed, including brain, extracranial neck arterial maximum intensity projections Findings: Sellaturcica is not enlarged. The optic chiasm and infundibular stalk are not remarkable. Prepontine and interpeduncular cisterns are not enlarged. No localized enlargement of the medulla or melissa. Fourth ventricle and cerebellar tonsils normal in position. Subacute hemorrhage is not seen. Fourth ventricle is midline. Mass in the cerebellopontine angle region is not evident. 7th and 8th nerve complexes exhibits symmetry. Globes are symmetrical with no retro-orbital mass. Increased white matter signal moderate Diffusion-weighted images demonstrate embolic type foci restricted diffusion, left frontal lobe, left parietal lobe with signal deficit on the ADC map. Mass-effect upon the ventricular system is not identified. Abnormal contrast enhancement is evident, subtle enhancement at the level of the parietal infarcts. 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
--- NOTE | 2024-12-23 12:02 | PC.CC ---
Addendum entered by Larry Cheung RN 12/23/24 18:21: 1801: spoke to Dr. Greenberg, he informed me that he spoke to Dr. Katiuska ugalde/ [facility] and he stated pt is not a candidate for sx intervention. He stated to cancel transfer request as pt will be admitted. Addendum entered by Larry Cheung RN 12/23/24 16:49: 1646: called [facility] back to inform him that I sent the MRI/MRA 3 separate times. He stated he will check when he gets a chance. He will call back if he didn't receive it. 1627: received call from [facility], he stated they are waiting for the MRI/MRA to be sent. I informed him I uploaded it. Addendum entered by Larry Cheung RN 12/23/24 15:37: 1535: link received, images currently uploading. 1532: Michael called back to inform me MD spoke to Dr. Greenberg and is requesting images. Link will be sent to upload images 1517: spoke to [facility] ugalde/ [facility] to inititate transfer. He spoke to Dr. Greenberg. Nurse will review and call back 1511: spoke to Zaynab [facility] [place]. Nurse will review clinicals and call back Addendum entered by Larry Cheung RN 12/23/24 15:02: 1452: clinicals sent to [facility] and [facility]. 1444: Dr Greenberg called back to reinitiate transfer for Vascular surgery after discussing the case with the resident team. They rec to continue w/ transfer at [facility]. Addendum entered by Larry Cheung RN 12/23/24 13:37: 1310: Per Dr. Greenberg, cancel transfer request for vascular sx. He will consult with Neurology for recommendations. 1305: Dr. Greenberg avail to discuss case. Called Bridgett Nova, she then connected him to Dr. Duff. They discussed case, per Dr. Duff d/t the complete occlusion, no surgical intervention. 1223: Bridgett Nova called back to speak to Dr. Greenberg, however Dr. Greenberg not avail to talk at this time. I will call Bridgett back when Dr. Greenberg is available Original Note: 1159: Spoke to Bridgett, she is aware of case. Sent results to [facility] for review. She will present it to Dr. Magana and call back. 1157: received call from Dr. Greenberg send MRI/MRA results to [facility]. This case was started last night between Dr. Huang and Dr. Magana. Dr Magana requested for the the MRI/MRA.
--- NOTE | 2024-12-23 13:34 | PD.TNEUROPRO ---
Tele Neuro Progress Note Progress Note Date 12/23/24 Most Recent Vital Signs Last Vital Signs Temp 98.0 F 12/23/24 11:57 Pulse 62 12/23/24 11:57 Resp 16 12/23/24 11:57 BP 111/87 H 12/23/24 11:57 Pulse Ox 92 L 12/23/24 11:57 O2 Del Method Room Air 12/23/24 11:57 Laboratory-Coagulation Panel PT 10.0 Seconds (9.0-12.2) 12/22/24 15:49 INR 0.9 (0.9-1.3) 12/22/24 15:49 Progress Note Narrative Spoke with Dr Greenberg ED physician I did not examine patient. MRI brain showing L side embolic infarcts ED phsycian discussed with vascular surgery, no acute intervention indicated RECS Stroke likely secondary to symptomatic L ICA stenosis No need for transfer as Vascular Surgery not offering acute intervention Would continue asa 81 mg /clopidogrel 75 mg daily Start high dose atorvastatin 80 mg Will need PT/OT and outpatient vascular Surgery follow up for intervention in near future MS
--- NOTE | 2024-12-23 20:36 | ECHO_ITS ---
Patient Info Name: Lee Ann Santizo Age: 59 years : 1965 Gender: Female Ht: 160 cm Wt: 54 kg BSA: 1.56 m2 BP: 90 / 58 mmHg HR: 83 bpm Heart Rhythm: Sinus Rhythm Exam Date: 12/24/2024 9:01 AM Admit Date: 12/22/2024 Site: [facility] Exam Room: [facility] Patient Status: E Exam Type: CA echo doppler complete [place] Mica: Zainab Mccarty Ordering Physician: Nathalia Isabel Referring Physician: Steffany Lama Study Info Indications embolic stroke w/u - Complete two-dimensional, color flow and Doppler transthoracic echocardiogram is performed with agitated saline. Left Ventricular Outflow Tract Name Value Normal LVOT 2D LVOT Diameter 1.9 cm LVOT Doppler LVOT Peak Velocity 119 cm/s LVOT Mean Gradient 3 mmHg LVOT VTI 24 cm LVOT VTI/AV VTI Ratio 0.9 LVOT Stroke Volume 67 ml Pulmonic Valve Name Value Normal PV Doppler PV Peak Velocity 75 cm/s Mitral Valve Name Value Normal MV Doppler MV Decel Delta 418 cm/s2 MV PHT 51 ms MV Area (PHT) 4.3 cm2 4.0-5.0 MV Diastolic Function MV E Peak Velocity 74 cm/s MV A Peak Velocity 91 cm/s MV E/A 0.8 MV Annular TDI MV Septal e' Velocity 5.9 cm/s MV E/e' (Septal) 12.6 MV Lateral e' Velocity 7.7 cm/s MV E/e' (Lateral) 9.5 MV e' Average 6.80 cm/s MV E/e' (Average) 11.1 Tricuspid Valve Name Value Normal TV Regurgitation Doppler TR Peak Velocity 140 cm/s Estimated PAP/RSVP RA Pressure 3 mmHg <=5 PA Systolic Pressure 11 mmHg <36 RV Systolic Pressure 11 mmHg <36 Aortic Valve Name Value Normal AV 2D/MM AV Cusp Sep (MM) 0.8 cm AV Doppler AV Peak Velocity 148 cm/s AV Mean Gradient 5 mmHg AV VTI 27 cm AV Area (Cont Eq VTI) 2.5 cm2 >=3.0 AV Area (Cont Eq Gerardo) 2.3 cm2 AV DI (Gerardo) 0.80 AV Regurgitation 2D LVOT Area 2.8 cm2 Ventricles Name Value Normal LV Dimensions 2D/MM IVS Diastolic Thickness (2D) 0.8 cm 0.6-0.9 LVID Diastole (2D) 4.2 cm 3.8-5.2 LVIW Diastolic Thickness (2D) 0.8 cm 0.6-0.9 LVID Systole (2D) 3.0 cm 2.2-3.5 LVOT Diameter 1.9 cm LV Mass (2D Cubed) 101.29 g 67.00-162.00 LV Mass Index (2D Cubed) 65 g/m2 43-95 Relative Wall Thickness (2D) 0.38 <=0.42 IVS/LVIW Diastolic Thickness (2D) 1.00 0.00-1.50 LV Fractional Shortening/Ejection Fraction 2D/MM LV Fractional Shortening (2D) 29 % 27-45 LV EF (2D Teichholz) 55 % Atria Name Value Normal LA Dimensions LA Volume (4C A-L) 20 ml LA Volume (BP A-L) 29 ml Left Ventricle Left ventricular chamber dimension is normal. Left ventricular systolic function is normal with visually estimated ejection fraction of 55-60%. There is normal geometry noted in the left ventricle. Left ventricular segmental wall motion is normal. The left ventricular diastolic function is grade I diastolic dysfunction. Right Ventricle Right ventricular chamber dimension is normal. Right ventricular systolic function is normal. Left Atrium Left atrial chamber dimension is normal. Right Atrium Right atrial chamber dimension is normal. Atrial Septum The interatrial septum appears normal with no evidence of a shunt. Aortic Valve The aortic valve is trileaflet. There is mild aortic valve sclerosis. There is no aortic valve stenosis with a peak velocity of 148 cm/s, mean gradient of 5 mmHg, and aortic valve area of 2.5 cm2. There is no aortic valve regurgitation. Pulmonic Valve The pulmonic valve is normal. There is no pulmonic valve stenosis. There is no pulmonic regurgitation. Mitral Valve The mitral valve has normal leaflets. There is no mitral valve stenosis. There is trace mitral valve regurgitation. Tricuspid Valve The tricuspid valve leaflets are normal. There is no significant tricuspid valve stenosis. There is no tricuspid valve regurgitation. No pulmonary hypertension, estimated pulmonary arterial systolic pressure is 11 mmHg and systemic blood pressure of 90 mmHg in systole. Pericardium/Pleural The pericardium appears normal. There is no pericardial effusion. No pleural effusion visualized. Inferior Vena Cava Normal inferior vena cava with >50% collapse upon inspiration consistent with normal right atrial pressure, 3 mmHg. Aorta The aortic measurements are indexed to age and body surface area. The aortic root at the sinus of Valsalva is not well visualized. The prox ascending aorta is not well visualized. Summary 1. Bubble study negative for any PFO or ASD but suboptimal images. Consider MELISA if high index of clinical suspicion. 2. Left ventricle size is normal and systolic function is normal. Visually estimated ejection fraction is 55-60%. The diastolic function is grade I diastolic dysfunction. 3. Right ventricle size is normal and systolic function is normal. Estimated PASP is 11 mmHg. No pulmonary hypertension. 4. There is mild tricuspid valve regurgitation. 5. There is mild aortic valve sclerosis. Prior Cardiovascular Procedures Cardiovascular Study w/in 6 months: No Report Signatures Finalized by James Meza on 12/24/2024 06:49 PM
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
[2024-12-23] MEDS: NICOTINE PATCH 7 MG/24 HR PATCH.TD24 TOP (22:40)
[2024-12-23] MEDS: ATORVASTATIN CALCIUM 20 MG TABLET 80 MG PO (22:40)
[2024-12-23] MEDS: GABAPENTIN 100 MG CAPSULE 300 MG PO (22:40)
[2024-12-23] MEDS: HEPARIN SOD INJ 5000 UNIT/ML VIAL SC (22:41)
[2024-12-23] MEDS: INSULIN LISPRO (AdmeLOG) 1 UNIT/0.01 ML UNIT SC (22:42)
[2024-12-23] MEDS: ASPIRIN EC 81 MG TABEC PO (22:44)
[2024-12-24] VITALS: BP 109/71; PULSE 75; RESP 18; TEMP 37.1; O2SAT 94
[2024-12-24 00:34] VITALS: BMI 20.7
[2024-12-24 04:00] VITALS: BP 93/74; PULSE 62; RESP 16; TEMP 36.5; O2SAT 94
[2024-12-24] MEDS: HEPARIN SOD INJ 5000 UNIT/ML VIAL SC ×3 (05:18→21:01)
[2024-12-24 05:44] LABS: Basophils # (Auto) 0.1 Thou/mm3 (0.0-0.2); Basophils % (Auto) 1 % (0-2.5); Eosinophils # (Auto) 0.3 Thou/mm3 (0.0-0.5); Eosinophils % (Auto) 4 % (0-10); Hematocrit 41.7 % (36.0-46.0); Hemoglobin 13.2 g/dL (12.0-16.0); Immature Granulocytes Auto 0.03 Thou/mm3 (0.00-0.00); Lymphocytes # (Auto) 1.4 Thou/mm3 (1.0-4.8); Lymphocytes % (Auto) 20 % (10-50); Mean Corpuscular HGB Conc 31.7 g/dl (31.0-37.0); Mean Corpuscular Hemoglobin 26.3 pg (25.0-35.0); Mean Corpuscular Volume 83 fL (80-100); Monocytes # (Auto) 0.6 Thou/mm3 (0.0-0.8); Monocytes % (Auto) 9 % (0-12); Neutrophils # (Auto) 4.7 Thou/mm3 (1.8-7.7); Neutrophils % (Auto) 67 % (37-80); Nucleated Red Blood Cell # 0.00 Thou/mm3 (0.00-0.00); Nucleated Red Blood Cell % 0 /100 WBC (0); Platelet Count 228 Thou/mm3 (140-440); RDW Standard Deviation 49.0 fL (36.4-46.3); Red Blood Count 5.02 Miln/mm3 (4.00-5.20); White Blood Count 7.1 Thou/mm3 (3.6-11.0)
[2024-12-24 06:10] LABS: Anion Gap 12 (7-16); BUN/Creatinine Ratio 18 Ratio (12-20); Blood Urea Nitrogen 9 mg/dL (9-23); Calcium 8.9 mg/dL (8.3-10.6); Carbon Dioxide 21.6 mMol/L (20.0-31.0); Cardiac Risk Estimate 6.2 RATIO (3.7-5.6); Chloride 106 mMol/L (98-107); Cholesterol 235 mg/dL (132-200); Creatinine (Component) 0.5 mg/dL (0.6-1.3); Estimated Creatinine Clearance 102.7 mL/min (>60); Glucose 126 mg/dL (74-106); HDL Cholesterol 38 mg/dL (40-60); LDL Cholesterol,Calculated 140 mg/dL (0-130); Magnesium 1.8 mg/dL (1.6-2.6); Osmolality,Calculated 280 (275-295); Phosphorous 3.7 mg/dL (2.4-5.1); Potassium 3.7 mMol/L (3.4-5.1); Sodium 140 mMol/L (136-145); Thyroid Stimulating Hormone 5.19 uIU/mL (0.55-4.78); Triglycerides 286 mg/dL (30-150); eGFR > 60 See Note
[2024-12-24 06:11] LABS: Glucose Estimated Average 332 mg/dL (80-131); Hemoglobin A1C 13.2 % Hgb (4.8-6.0)
[2024-12-24] MEDS: INSULIN LISPRO (AdmeLOG) 1 UNIT/0.01 ML UNIT SC ×3 (07:28→20:57)
[2024-12-24 08:00] VITALS: BP 90/58; PULSE 72; PULSE 87; RESP 15; TEMP 36.8; O2SAT 95
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
[2024-12-24 08:50] LABS: Free T4 (Free Thyroxine) 0.93 ng/dL (0.89-1.76)
[2024-12-24] MEDS: CLOPIDOGREL BISULFATE 75 MG TABLET PO (08:58)
[2024-12-24] MEDS: ASPIRIN EC 81 MG TABEC PO (08:58)
[2024-12-24] MEDS: GABAPENTIN 100 MG CAPSULE 300 MG PO ×2 (08:58→20:57)
[2024-12-24] MEDS: CITALOPRAM 20 MG TABLET 40 MG PO (08:59)
--- NOTE | 2024-12-24 11:10 | PC.SS ---
SS met with patient regarding her d/c plan. Pt is alert/oriented. Pt was admitted for Embolic Ischemic Stroke. Pt confirmed demographic and contact information is correct on facesheet. Pt resides with brother and sister in law. Pt ambulates independently without assistance or DME. Pt is ok with all ADLs. Patient?s pharmacy of choice is [facility] on [address] Patient's dtr Bridgett Islas is her medical decision maker if she is unable. Patient?s choice is to return home upon d/c. Pt does not have an advance directive, SS offered, and pt declined. Pt states she is diabetic but does not have glucometer. Pt takes oral medication for her diabetes. Pt states she is not on dialysis. Sister will provide transportation home. D/C plan: Return home Next of Kin: Bridgett Merino, daughter, phone# [phone] PCP: Briana Morataya from [facility] Address: Correct on facesheet
--- NOTE | 2024-12-24 11:29 | PC.CM ---
I received a call from Pili from [facility]. She states patient will be following up with them and she wanted a phone number. I reviewed paris's chart and I see patient will be followed by [facility] as outpatient. I provided the phone number to Pili.
[2024-12-24 12:00] VITALS: BP 103/68; PULSE 87; PULSE 91; RESP 20; TEMP 36.9; O2SAT 94
--- NOTE | 2024-12-24 15:17 | PD.RESPRO ---
Documentation for date of: 12/24/24 Subjective Subjective Interval history: Patient examined at bedside. Vitals are stable. Glucose 126, A1c 13.2, tags 286, cholesterol 235, LDL 140, HDL 38, TSH 5.19. Patient is poor historian unable to recall events leading up to admission or much of her past medical history. I attempted to contact patient's sister but no answer. States that her right arm weakness is still present but improved since yesterday. Patient endorses smoking about once a pack per day. Denies any headache, dizziness, no slurred speech, strength 3/5 in upper right extremity. Strength 5/5 in other extremities, ataxia and dysmetria noted on right. MRI was positive for multiple embolic infarcts of left frontal and parietal lobes. Echo is pending. Emphasized to patient importance of optimizing glycemic control as this is a modifiable risk factor for recurrent strokes. Recommend close follow-up with primary care and vascular surgery for left carotid stenosis. Plan to continue aspirin, Plavix, atorvastatin daily. Exam Vital Signs Temp Pulse Resp BP Pulse Ox O2 Del Method 98.4 F 91 20 103/68 94 L Room Air 12/24/24 12:00 12/24/24 12:00 12/24/24 12:00 12/24/24 12:00 12/24/24 12:00 12/24/24 12:00 Narrative Exam General:Middle age female, appears confused, No acute distress, cooperative HEENT: NCAT, No JVD noted. Mucosa moist. Pupils are equal and reactive to light bilaterally Cardiovascular: Normal S1 and S2. Regular rate and rhythm. Respiratory: Lungs are clear to auscultation bilaterally. No wheezing or crackles heard. Abdomen: Soft, nontender, not distended, normal bowel sounds. Skin: Warm to touch, dry, no rashes noted Musculoskeletal: No gross injuries. Able to move all 4 extremities. No pitting edema Neuro: Alert, awake and oriented x3. Cranial nerves: II through XII grossly intact. Speech and language: Normal with no dysarthria or dysphasia. Motor system: Tone and bulk: Normal: Strength: 3/5 in RUE. 5 out of 5 in all other extremities; No pronator drift noted. Deep tendon reflexes: 2+ bilaterally symmetrical. Plantar reflex: Downgoing bilaterally. Sensory system: Intact to all modalities of sensation bilaterally. Coordination: Unable to perform finger-nose and [id number] test on right. Ataxia, dysmetria on right. No intention tremors noted. Gait: ataxia. No signs of meningeal irritation noted. Psych: Normal affect and mood Objective Labs 12/25/24 04:18 12/25/24 04:18 Labs: Laboratory Results - last 24 hr 12/24/24 04:33 WBC 7.1 RBC 5.02 Hgb 13.2 Hct 41.7 MCV 83 MCH 26.3 MCHC 31.7 RDW Std Deviation 49.0 H Plt Count 228 Neut % (Auto) 67 Lymph % (Auto) 20 [place] % (Auto) 9 Eos % (Auto) 4 Baso % (Auto) 1 Neut # (Auto) 4.7 Lymph # (Auto) 1.4 [place] # (Auto) 0.6 Eos # (Auto) 0.3 Baso # (Auto) 0.1 Immature Gran # (Auto) 0.03 H Absolute Nucleated RBC 0.00 Immature Gran % 0 Nucleated RBC % 0 Sodium 140 Potassium 3.7 D Chloride 106 Carbon Dioxide 21.6 Anion Gap 12 BUN 9 Creatinine 0.5 L Estim Creat Clear Calc 102.7 eGFR > 60 BUN/Creatinine Ratio 18 Glucose [address] Glu mg/dL 332 H Hemoglobin A1c 13.2 H Calculated Osmolality 280 Calcium 8.9 Phosphorus 3.7 Magnesium 1.8 Triglycerides 286 H Cholesterol 235 H LDL Cholesterol, Calc 140 H HDL Cholesterol 38 L Cholesterol/HDL Ratio 6.2 H TSH 5.19 H Free T4 0.93 Quality Measures Quality Measures VTE prophylaxis Assessment & Plan Assessment Current Active Medications: Generic Name Dose Route Start Last Admin Trade Name Freq PRN Reason Stop Dose Admin Acetaminophen 650 mg 12/23/24 20:36 Acetaminophen 325 Mg Tablet PO 01/22/25 20:35 Q6H PRN Fever >100.3 Acetaminophen 650 mg 12/23/24 20:36 Acetaminophen 325 Mg Tablet PO 01/22/25 20:35 Q6H PRN PAIN SCALE 1-3 (mild Aspirin 81 mg 12/24/24 09:00 12/24/24 08:58 Aspirin Ec 81 Mg Tabec PO 01/23/25 08:59 81 mg QDAY CHRISTINE Administration Atorvastatin Calcium 80 mg 12/23/24 21:00 12/23/24 22:40 Atorvastatin Calcium 20 Mg Tablet PO 01/22/25 20:59 80 mg HS CHRISTINE Administration Citalopram Hydrobromide 40 mg 12/24/24 09:00 12/24/24 08:59 Citalopram 20 Mg Tablet PO 01/23/25 08:59 40 mg QDAY CHRISTINE Administration Clopidogrel Bisulfate 75 mg 12/24/24 09:00 12/24/24 08:58 Clopidogrel Bisulfate 75 Mg Tablet PO 01/23/25 08:59 75 mg QDAY CHRISTINE Administration Dextrose 25 ml 12/23/24 20:41 Dextrose 50%-Water Inj 50 Ml Syringe IV 01/22/25 20:40 Q15MIN PRN BG 50-70 responsive npo pt Dextrose 50 ml 12/23/24 20:41 Dextrose 50%-Water Inj 50 Ml Syringe IV 01/22/25 20:40 Q15MIN PRN BG <50 OR BG <70 & pt unresponsive Gabapentin 300 mg 12/23/24 21:00 12/24/24 08:58 Gabapentin 100 Mg Capsule PO 01/22/25 20:59 300 mg BID CHRISTINE Administration Glucagon 1 mg 12/23/24 20:41 Glucagon Inj 1 Mg Vial IM Q15MIN PRN BG <70, and no IV access Heparin Sodium (Porcine) 5,000 unit 12/23/24 22:00 12/24/24 14:05 Heparin Sod Inj 5000 Unit/Ml Vial SC 01/06/25 21:59 5,000 unit Q8HR CHRISTINE Administration Insulin Human Lispro 0 unit 12/23/24 21:00 12/24/24 11:38 Insulin Lispro (Admelog) 1 Unit/0.01 Ml Unit SC 01/22/25 20:59 2 unit ACHS CHRISTINE Administration Protocol Ondansetron HCl 4 mg 12/23/24 20:36 Ondansetron Inj 2 Mg/Ml Inj 2 Ml IVP 01/22/25 20:35 Q6H PRN NAUSEA OR VOMITING Protocol Sennosides 1 tab 12/23/24 21:10 Senna/Docusate Sod 1 Tab Tablet PO 01/22/25 21:09 QDAY PRN CONSTIPATION Protocol Plan Patient is a 59 y/o female with PMH stroke?, TBI?, T2DM, HTN, and migraines who presented to the ED on 12/22 with 1 week of dizziness, recurrent falls, and right sided weakness and paresthesias. Admitted for managment of stroke management. 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 Stated that she was walking to the kitchen when she had a ground-level fall. Patient lives with her sister at home who assisted her to the car and brought to ED. Unsure if patient has previously had a stroke or TIA. Symptoms have improved but noted to still dysmetria. No new focal neurodeficits on exam. Neuro was consulted in the ED. NIHSS score 5 due to right arm drifting, right leg drifting and mild dysarthria. Blood pressure on admission 146/85, glucose was 356. A1c 13.2, tags 286, cholesterol 235, LDL 140, HDL 38, TSH 5.19. CT head negative, CTA head and neck No filling of proximal and mid left common carotid artery. Critical 95% stenosis left carotid bifurcation and proximal left internal carotid. No LVO MRI returned positive for multiple embolic type infarcts of left frontal and left parietal lobe. He was not deemed candidate for thrombolytic therapy due to timeframe. ED attempted to transfer patient before admission. Patient was [facility] [place] [facility] given chronic nature of left common and internal carotid artery - no benefit from acute revascularization . - Continue aspirin 81 mg, Plavix 75 mg, atorvastatin 80 mg for 90 days or until alternative intervention done by vascular surgeon -glycemic control as this is a modifiable risk factor for recurrent strokes. - Recommend close follow-up with primary care and -close follow up with vascular surgery for left carotid stenosis. -echo is pending -Neuro Checks q4h - Aspiration Precautions, Head of bed 30 degrees - Euglycemia and avoid Hyperthermia - Refer PT, speech eval #Poorly controlled, non insulin dependent Type 2 diabetes mellitus Home meds: Jardiance, metformin Initial glucose 356 HbA1c: 13.2 Plan: - SSI - Gabapentin 300 mg PO BID (home med) #Mood disorder, unspecified #Hx Hallucinations, paranoid delusions #Nicotine dependence Primary care team to manage above conditions and ongoing care needs. The patient's management plan was discussed with my attending physician Dr. Escalera. Cristine Ocampo, PGY-2 Attending Provider Attestation/Addendum Personally have seen and examined the patient at the bedside and I agreed with resident's findings, assessment and plan of care. Patient with distal more than proximal right upper extremity weakness with dysmetria and lack of coordination with abnormal MRI brain showing multiple embolic type infarct in the left cerebral hemisphere. Will continue with aspirin, Plavix and statin as the MRA showed near complete occlusion of the left internal carotid artery. She would need vascular surgery outpatient evaluation to consider carotid artery endarterectomy. Will continue with aggressive medical management for now and advised her about the importance of stopping smoking.
[2024-12-24 16:00] VITALS: BP 142/81; PULSE 69; PULSE 70; RESP 17; TEMP 36.1; O2SAT 97
[2024-12-24 16:42] VITALS: BMI 13.0
--- NOTE | 2024-12-24 17:44 | PC.PT ---
Patient is safe to transfer to a bedside commode with a FWW and 1staff for safety. RN made aware.
[2024-12-24 19:50] VITALS: BP 133/76; PULSE 78; RESP 18; TEMP 36.7; O2SAT 98
[2024-12-24] MEDS: ATORVASTATIN CALCIUM 20 MG TABLET 80 MG PO (20:56)
[2024-12-25] VITALS: BP 137/82; PULSE 65; RESP 15; TEMP 36.8; O2SAT 97
--- NOTE | 2024-12-25 03:08 | PC.NURSE ---
[employer] downtime occurred on <12/25> from <0200> to <0300>.
[2024-12-25 04:00] VITALS: BP 90/66; PULSE 59; RESP 14; TEMP 36.7; O2SAT 98
[2024-12-25] MEDS: HEPARIN SOD INJ 5000 UNIT/ML VIAL SC ×3 (05:18→21:18)
[2024-12-25 05:20] LABS: Basophils # (Auto) 0.0 Thou/mm3 (0.0-0.2); Basophils % (Auto) 1 % (0-2.5); Eosinophils # (Auto) 0.2 Thou/mm3 (0.0-0.5); Eosinophils % (Auto) 5 % (0-10); Hematocrit 41.5 % (36.0-46.0); Hemoglobin 13.6 g/dL (12.0-16.0); Immature Granulocytes Auto 0.01 Thou/mm3 (0.00-0.00); Lymphocytes # (Auto) 1.4 Thou/mm3 (1.0-4.8); Lymphocytes % (Auto) 27 % (10-50); Mean Corpuscular HGB Conc 32.8 g/dl (31.0-37.0); Mean Corpuscular Hemoglobin 27.0 pg (25.0-35.0); Mean Corpuscular Volume 83 fL (80-100); Monocytes # (Auto) 0.6 Thou/mm3 (0.0-0.8); Monocytes % (Auto) 11 % (0-12); Neutrophils # (Auto) 2.8 Thou/mm3 (1.8-7.7); Neutrophils % (Auto) 56 % (37-80); Nucleated Red Blood Cell # 0.00 Thou/mm3 (0.00-0.00); Nucleated Red Blood Cell % 0 /100 WBC (0); Platelet Count 200 Thou/mm3 (140-440); RDW Standard Deviation 47.9 fL (36.4-46.3); Red Blood Count 5.03 Miln/mm3 (4.00-5.20); White Blood Count 5.0 Thou/mm3 (3.6-11.0)
[2024-12-25 06:17] LABS: Alanine Aminotransferase < 7 U/L (10-49); Albumin, Serum 4.0 gm/dL (3.5-5.0); Albumin/Globulin Ratio 1.8 (1.2-2.2); Alkaline Phosphatase 96 U/L (46-116); Anion Gap 11 (7-16); Aspartate Amino Transferase 15 U/L (0-34); BUN/Creatinine Ratio 18 Ratio (12-20); Bilirubin,Total 0.3 mg/dL (0.3-1.2); Blood Urea Nitrogen 11 mg/dL (9-23); Calcium 9.0 mg/dL (8.3-10.6); Calcium (Corrected) 9.0 mg/dL (8.5-10.1); Carbon Dioxide 23.7 mMol/L (20.0-31.0); Chloride 105 mMol/L (98-107); Creatinine (Component) 0.6 mg/dL (0.6-1.3); Estimated Creatinine Clearance 85.6 mL/min (>60); Globulin 2.2 gm/dL (2.3-3.5); Glucose 199 mg/dL (74-106); Magnesium 1.9 mg/dL (1.6-2.6); Osmolality,Calculated 284 (275-295); Phosphorous 4.2 mg/dL (2.4-5.1); Potassium 4.2 mMol/L (3.4-5.1); Sodium 140 mMol/L (136-145); Total Protein 6.2 gm/dL (5.7-8.2); eGFR > 60 See Note
[2024-12-25] MEDS: INSULIN LISPRO (AdmeLOG) 1 UNIT/0.01 ML UNIT SC ×2 (07:28→21:28)
[2024-12-25 08:00] VITALS: BP 108/63; PULSE 92; PULSE 97; RESP 21; TEMP 36.4; O2SAT 95
[2024-12-25] MEDS: CLOPIDOGREL BISULFATE 75 MG TABLET PO (08:10)
[2024-12-25] MEDS: ASPIRIN EC 81 MG TABEC PO (08:10)
[2024-12-25] MEDS: CITALOPRAM 20 MG TABLET 40 MG PO (08:10)
[2024-12-25] MEDS: GABAPENTIN 100 MG CAPSULE 300 MG PO ×2 (08:11→21:17)
--- NOTE | 2024-12-25 08:58 | PC.SS ---
Follow up note: SS has sent inquiry to [facility] (recommended by PT) and local SNF using [facility].
--- NOTE | 2024-12-25 09:19 | PD.RESDS ---
Planned Discharge Date 12/25/24 DS: Providers Provider Date of admission: 12/23/24 20:36 Primary care physician: Briana Morataya PA-C Admitting Provider: Nathalia Isabel MD Attending Provider on Admission: Keith Galindo MD Consults: 12/23/24 11:53 Referral - Special War[employer] Operator Stat Service Needed for Transfer: Vascular Surgery Addl Comments:: From Dr. Baker - Discussed case with [facility] transfer center. Spoke with Dr. Magana, vascular surgeon, who requests more specifics about the patient's CTA and to call him back . See MRI, MRA with contrast report. 12/23/24 20:40 Consult to Neurology / Tele-Neurology Stat Comment: Consulting Provider: Bran Escalera Referral Physical Therapy Stat Comment: Physician Instructions: Referral Speech Therapy Stat Comment: Attending Provider on DC: David Angel DO Discharging Provider: David Angel DO DS: Diagnosis Problem List Completed Was Problem List Reviewed/Reconciled?: Yes Hospital Course Hospital Course Hospital course: Summary: Ms. Santizo is a 59 y/o female with PMH stroke?, TBI, T2DM, HTN, and migraines who presented to the ED on 12/22 with 1 week of dizziness, recurrent falls, and right sided weakness and paresthesias. Admitted for stroke management. CTA showed 95% stenosis of left carotid bifurcation and proximal left internal carotid. MRI/MRA w/ and w/o contrast showed occlusion of left common carotid artery. Transfer to tertiary center was denied. Dr. Geovany Harp, at [place], stated patient?s condition is likely chronic issue and recommended outpatient follow up upon discharge. ED course: BP 92-122/58-86. Labs significant for Na 135, glucose 356. Troponin, UDS unremarkable. UA 1.05 specific gravity, 4+ glucose, +LE, 4 RBC. Hip and pelvis XR negative for fracture. CT head w/o: negative for acute hemorrhage, mass effect, midline shift. CTA: No filling of proximal and mid left common carotid artery. Critical 95% stenosis left carotid bifurcation and proximal left internal carotid. No LVO. Carotid doppler: Right ICA 10-20% stenosis. Left common carotid artery no flow. Retrograde flow left common carotid artery. MRI/MRA w/ and w/o: Multiple embolic type acute ischemic infarct left frontal and left parietal. Occlusion of left common carotid artery. Opacification of distal left common carotid artery. Critical stenosis proximal left ICA but fills distally (indicative of some degree of collateralization). Subtle enhancement around left parietal infarcts. Consulted tele-neuro. NIHSS 5. Recommended loading dose aspirin and plavix with continued DAPT. Not a candidate for tPA or thrombectomy given time frame of symptoms. Dr. Escalera saw patient, recommended transferring to a tertiary center. Denied transfer to [facility] (Dr. Magana, vascular surgeon), [place] (neurointerventionalist, head of stroke team Dr. Geovany Harp). Dr. Harp stated that carotid occlusion is chronic and complete, with collateral circulation present. He does not believe revascularization would provide acute benefit and does not recommend transfer at this time. Hospital Course: Upon admission to the hospital, patient was given aspiring 81mg po daily, Plavix 75mg po daily, and Atorvastatin 80mg po daily. Labs showed HbA1c:13.2, T, Chol:235, LDL:140, TSH: 5.19. Patient's right arm weakness improved after 1 day. ECHO (12/23/2024) showed: Bubble study negative for any PFO or ASD, Left ventricle size normal and systolic function normal. Visually estimated ejection fraction 55-60%. Grade I diastolic dysfunction. Right ventricle size normal and systolic function normal. Estimated PASP 11 mmHg. No pulmonary hypertension.Mild tricuspid valve regurgitation and mild aortic valve sclerosis. Physical Therapy (12/24/2024) recommended acute rehab for recovery. Patient has high fall risk, with decreased ability to ambulate safely due to ataxic gait and multiple acute infarcts impacting decision making and safety awareness. With history of multiple falls, patient is unsafe to return home. Patient is made aware and was discharged to SNF Instructions: Take aspirin 81 mg , atorvastatin 80 mg, plavix 75 mg for 90 days, and follow up outpatient with Dr. Geovany Harp neurosurgery in [place], find below the information. Follow-up outpatient with neurology in 1 to 2 weeks after discharge, discuss medication and further plan You started on insulin, please monitor blood sugar daily, tight control of blood sugar is critical in your condition. follow up with PCP for further adjustment. Continue the rest of the home medication Return to ED anytime symptoms worsens. 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 Galindo and Dr. Mir (PGY-3) Dr. Angel (PGY-1) - Internal medicine resident Time Spent with Patient Time attestation: Total time spent providing and/or coordinating discharge services: Time spent: Greater than 30 minutes Exam Vital Signs Temp Pulse Resp BP Pulse Ox O2 Del Method 97.5 F 97 21 H 108/63 95 Room Air 12/25/24 08:00 12/25/24 08:00 12/25/24 08:00 12/25/24 08:00 12/25/24 08:00 12/25/24 08:00 Narrative Exam General: No acute distress, well nourished, AAO x3 Eye: Normal conjunctiva, no scleral icterus HENT: Normocephalic, atraumatic, hearing intact to conversation at normal volume, moist oral mucosa Neck: Supple, non-tender, no JVD, no lymphadenopathy Lungs: Non-labored respirations, symmetric chest rise, Clear to auscultate bilaterally, No wheezing, rhonchi, crackles Heart: Peripheral pulses intact bilaterally, Regular Rate and Rhythm. Abdomen: Soft, non-tender, non-distended, no palpable masses Musculoskeletal: Normal range of motion and strength, No cyanosis or edema, No visible joint swelling Skin: Skin is warm, dry, no rashes or lesions. Psychiatric: Cooperative, appropriate mood and affect, Awake and alert, not agitated Neuro: Cranial nerves II-XII grossly intact. Strength 5/5 throughout. Sensations intact to light touch. Discharge Plan Plan Patient Disposition: Xfer Skilled Nsg Fac (SNF) Care Plan Goals: Take aspirin 81 mg , atorvastatin 80 mg , plavix 75 mg for 90 days, and follow up outpatient with Dr. Geovany Harp neurosurgery in [place], find below the information. Follow-up outpatient with neurology in 1 to 2 weeks after discharge, discuss medication and further plan You started on insulin, please monitor blood sugar daily, tight control of blood sugar is critical in your condition. follow up with PCP for further adjustment. Continue the rest of the home medication Return to ED anytime symptoms worsens. Follow-up with PCP in 1 to 2 weeks after discharge Prescriptions/Referrals Prescriptions/Med Rec: New atorvastatin [Lipitor] 80 mg tablet 80 mg PO QPM 90 Days Qty: 90 0RF aspirin 81 mg capsule 81 mg PO QDAY 90 Days Qty: 90 0RF clopidogrel [Plavix] 75 mg tablet 75 mg PO QDAY 90 Days Qty: 90 0RF insulin degludec 100 unit/mL solution 5 unit subcut QDAY Qty: 10 0RF Continued Jardiance 25 mg tablet 25 mg PO DAILY citalopram 40 mg tablet 40 mg PO DAILY Patient Comments: TAKE 1 TABLET BY MOUTH EVERY DAY loratadine 10 mg tablet 10 mg PO DAILY Patient Comments: TAKE 1 TABLET BY MOUTH EVERY DAY lisinopril 5 mg tablet 5 mg PO DAILY Patient Comments: TAKE 1 TABLET BY MOUTH EVERY DAY gabapentin 300 mg capsule 300 mg PO BID Patient Comments: TAKE 1 CAPSULE BY MOUTH TWICE A DAY topiramate 100 mg tablet 100 mg PO BID Discontinued pioglitazone 15 mg tablet 15 mg PO DAILY Patient Comments: TAKE 1 TABLET BY MOUTH EVERY DAY rosuvastatin 5 mg tablet 5 mg PO DAILY Patient Comments: TAKE 1 TABLET BY MOUTH EVERY DAY Referrals: Katiuska Armenta [Other, Neurosurgery] Briana Morataya PA-C [Primary Care Provider] Bran Escalera MD [Physician, Neurology] Patient/Caregiver Discharge Instructions Discharge Activity: as per physical therapy Education Materials: Discharge Instructions for Stroke Print Language: Tamazight Stand Alone Forms: [employer] Award Info., Patient Portal Info Letter Discharge Order Discharge Orders: Discharge (Routine); Ordered 12/25/24 Ordered By: Jolly Mir Quality Discharge Quality Measures VTE prophylaxis Attestestation MD Attestation I have examined the patient, reviewed labs and imaging findings, discussed the case with the resident(s), and reviewed entered orders. I agree with the plan of care as outlined in this note. Time Spent; [address] Mateo MD
--- NOTE | 2024-12-25 09:49 | PC.SS ---
12-24-24: Stroke assessment completed SS met with pt to discuss dc plan to acute rehab, SNF, or home. Pt is agreeable to Acute Rehab and her choice is [facility]. Pt was declined from [facility]. [facility] reached out to MD and is waiting his response. SS has spoken to dtr who is aware.
--- NOTE | 2024-12-25 10:32 | PC.SS ---
Addendum entered by Petrona Ho 12/25/24 10:43: SS provided patient's sister, Bridgett with verbal options for SNF to [facility] and [place]. [facility] has not responded. [facility] and [facility] are pending. [facility] and [facility] has declined. Sister is aware. Original Note: PASRR assessment initiated. Level 2 is pending evaluation. SS received call from patient's sister, Kymberly who states she has communicated with patient's dtr, Bridgett and they are requesting [facility], SNF if [facility] declines. SS has provided verbal options for SNF.
--- NOTE | 2024-12-25 10:55 | PC.SS ---
SS received call from [facility] who explained pt meets criteria and physician has approved. Insurance authorization is pending.
[2024-12-25 12:00] VITALS: BP 121/91; PULSE 63; PULSE 74; RESP 22; TEMP 37; O2SAT 96
--- NOTE | 2024-12-25 15:44 | PC.SS ---
SS has faxed inquiry to patient's health insurance. Insurance authorization is pending for Acute Rehab
[2024-12-25 16:00] VITALS: BP 119/69; PULSE 68; PULSE 90; RESP 20; TEMP 36.7; O2SAT 96
[2024-12-25 20:00] VITALS: BP 97/80; PULSE 67; RESP 20; TEMP 37; O2SAT 97
--- NOTE | 2024-12-25 20:20 | PC.NURSE ---
Report given to ANDRE Santana
[2024-12-25] MEDS: ATORVASTATIN CALCIUM 20 MG TABLET 80 MG PO (21:16)
--- NOTE | 2024-12-25 21:58 | ESPR_ITS ---
Documentation for date of: 12/25/24 Subjective Subjective Interval history: Patient was seen and telemetry today with her family at the bedside. She was trying to feed her self dinner using mainly the left hand as she continued to have right upper extremity weakness more distally than proximally. Exam - Neurology Vital Signs Temp Pulse Resp BP Pulse Ox O2 Del Method 98.6 F 67 20 97/80 97 Room Air 12/25/24 20:00 12/25/24 20:00 12/25/24 20:00 12/25/24 20:00 12/25/24 20:00 12/25/24 20:00 Narrative Exam GENERAL APPEARANCE: Well hydrated, well-nourished in no acute distress. HEENT: Normocephalic, atraumatic, extraocular movements intact. Pupils: Equal reacting to light and accommodation NECK: Supple, no JVD or bruits. CARDIOVASULAR: Heart: S1, S2 heard, regular without S3-S4 or murmur no rubs or gallops. LUNGS/CHEST: Clear to auscultation bilaterally. No rails, rhonchi, or wheezing. Normal inspection. ABDOMEN: Soft, nontender, with normal bowel sounds. No pulsatile masses. No rebound, rigidity, or guarding. Normal inspection and palpation. EXTREMITIES: Normal inspection and palpation. No edema, clubbing or cyanosis. SKIN: Warm and dry without rashes. Normal inspection. MUSCULOSKELETAL: No cervical, thoracic, lumbar or midline bony tenderness. Normal inspection. NEURO: Alert, awake and oriented x3. Cranial nerves: II through XII grossly intact. Speech and language: Normal with no dysarthria or dysphasia. Motor system: Tone and bulk: Normal: Strength: Moves all 4 extremities, pronator drift noted on the right upper extremity. Right upper extremity strength: 4/5 proximally and 3/5 distally. Deep tendon reflexes: 2+ bilaterally symmetrical. Plantar reflex: Downgoing bilaterally. Sensory system: Intact to all modalities of sensation bilaterally. Coordination: Intact to [id number] and [id number]-[id number] test bilaterally. Mild ataxia, dysmetria and dysdiadochokinesia noted in the right upper extremity. No intention tremors noted. Gait: Not tested. No signs of meningeal irritation noted. PSYCHIATRIC: Normal mood and affect. Objective Labs 12/25/24 04:18 12/25/24 04:18 Labs: Laboratory Results - last 24 hr 12/25/24 04:18 WBC 5.0 RBC 5.03 Hgb 13.6 Hct 41.5 MCV 83 MCH 27.0 MCHC 32.8 RDW Std Deviation 47.9 H Plt Count 200 Neut % (Auto) 56 Lymph % (Auto) 27 [place] % (Auto) 11 Eos % (Auto) 5 Baso % (Auto) 1 Neut # (Auto) 2.8 Lymph # (Auto) 1.4 [place] # (Auto) 0.6 Eos # (Auto) 0.2 Baso # (Auto) 0.0 Immature Gran # (Auto) 0.01 H Absolute Nucleated RBC 0.00 Immature Gran % 0 Nucleated RBC % 0 Sodium 140 Potassium 4.2 D Chloride 105 Carbon Dioxide 23.7 Anion Gap 11 BUN 11 Creatinine 0.6 Estim Creat Clear Calc 85.6 eGFR > 60 BUN/Creatinine Ratio 18 Glucose 199 H D Calculated Osmolality 284 Calcium 9.0 Corrected Calcium 9.0 Phosphorus 4.2 Magnesium 1.9 Total Bilirubin 0.3 AST 15 ALT < 7 L Alkaline Phosphatase 96 Total Protein 6.2 Albumin 4.0 Globulin 2.2 L Albumin/Globulin Ratio 1.8 Assessment & Plan Assessment and plan (1) Acute ischemic stroke: Status: Acute Assessment and plan: With multiple embolic infarct in the left cerebral hemisphere Continue to have right upper extremity distal more than proximal weakness, improving Continue with aspirin 81 mg, Plavix 75 mg, statin Patient is waiting for rehab placement (2) Carotid stenosis, left: Status: Acute Assessment and plan: She would need to be seen by vascular surgery for carotid endarterectomy on the left. Continue with aggressive medical management for now. Advised her about the importance of smoking cessation.
[2024-12-26] VITALS (9 sets, daily range): BP systolic 93–100; BP diastolic 50–80; PULSE 53–93; RESP 15–20; TEMP 36.1–37; O2SAT 93–97
[2024-12-26 06:00] LABS: Basophils # (Auto) 0.0 Thou/mm3 (0.0-0.2); Basophils % (Auto) 1 % (0-2.5); Eosinophils # (Auto) 0.3 Thou/mm3 (0.0-0.5); Eosinophils % (Auto) 6 % (0-10); Hematocrit 41.9 % (36.0-46.0); Hemoglobin 13.3 g/dL (12.0-16.0); Immature Granulocytes Auto 0.01 Thou/mm3 (0.00-0.00); Lymphocytes # (Auto) 1.4 Thou/mm3 (1.0-4.8); Lymphocytes % (Auto) 28 % (10-50); Mean Corpuscular HGB Conc 31.7 g/dl (31.0-37.0); Mean Corpuscular Hemoglobin 26.6 pg (25.0-35.0); Mean Corpuscular Volume 84 fL (80-100); Monocytes # (Auto) 0.5 Thou/mm3 (0.0-0.8); Monocytes % (Auto) 11 % (0-12); Neutrophils # (Auto) 2.7 Thou/mm3 (1.8-7.7); Neutrophils % (Auto) 54 % (37-80); Nucleated Red Blood Cell # 0.00 Thou/mm3 (0.00-0.00); Nucleated Red Blood Cell % 0 /100 WBC (0); Platelet Count 222 Thou/mm3 (140-440); RDW Standard Deviation 48.3 fL (36.4-46.3); Red Blood Count 5.00 Miln/mm3 (4.00-5.20); White Blood Count 4.9 Thou/mm3 (3.6-11.0)
[2024-12-26] MEDS: HEPARIN SOD INJ 5000 UNIT/ML VIAL SC ×2 (06:22→14:33)
[2024-12-26 06:25] LABS: Alanine Aminotransferase < 7 U/L (10-49); Albumin, Serum 4.0 gm/dL (3.5-5.0); Albumin/Globulin Ratio 1.6 (1.2-2.2); Alkaline Phosphatase 93 U/L (46-116); Anion Gap 3 (7-16); Aspartate Amino Transferase 11 U/L (0-34); BUN/Creatinine Ratio 18 Ratio (12-20); Bilirubin,Total 0.3 mg/dL (0.3-1.2); Blood Urea Nitrogen 11 mg/dL (9-23); Calcium 9.4 mg/dL (8.3-10.6); Calcium (Corrected) 9.4 mg/dL (8.5-10.1); Carbon Dioxide 28.7 mMol/L (20.0-31.0); Chloride 105 mMol/L (98-107); Creatinine (Component) 0.6 mg/dL (0.6-1.3); Estimated Creatinine Clearance 85.6 mL/min (>60); Globulin 2.5 gm/dL (2.3-3.5); Glucose 206 mg/dL (74-106); Magnesium 1.9 mg/dL (1.6-2.6); Osmolality,Calculated 279 (275-295); Phosphorous 4.2 mg/dL (2.4-5.1); Potassium 4.3 mMol/L (3.4-5.1); Sodium 137 mMol/L (136-145); Total Protein 6.5 gm/dL (5.7-8.2); eGFR > 60 See Note
[2024-12-26] MEDS: INSULIN LISPRO (AdmeLOG) 1 UNIT/0.01 ML UNIT SC ×3 (07:49→17:06)
[2024-12-26] MEDS: CLOPIDOGREL BISULFATE 75 MG TABLET PO (09:01)
[2024-12-26] MEDS: CITALOPRAM 20 MG TABLET 40 MG PO (09:02)
[2024-12-26] MEDS: ASPIRIN EC 81 MG TABEC PO (09:02)
[2024-12-26] MEDS: GABAPENTIN 100 MG CAPSULE 300 MG PO (09:02)
[2024-12-26] MEDS: INSULIN DEGLUDEC 5 UNIT/0.05 ML (PER 5 UNITS) SC (09:15)
--- NOTE | 2024-12-26 10:09 | PC.SS ---
SS spoke to [facility] who explained insurance authorization is still pending and will contact SS once authorization is obtained. Pt is aware. Pt states if her health insurance does not approve Acute Rehab her next choice is [facility]. SS provided verbal options for the local SNF.
--- NOTE | 2024-12-26 14:37 | PC.SS ---
SS has setup gurney transportation with Cole from [facility] for 5pm to [facility] for 5pm.? Ref# [id number]..? SS has requested [facility].? Per [facility] claims service representative, [facility] is not a guaranteed transport company.? Estimated time is 3-4 hours.? SS has sent patient?s facesheet and ambulance form to [facility] using [facility].? SS has spoken to Nevin at [facility] who has received call from [facility] and transportation is setup for 5pm. SS has spoken to Pili from [facility] who requested updated notes and d/c summary to be sent. SS has sent information using [facility]. Pili from [facility] has requested 5pm transportation time and phone number for report is: [phone]. Bedside nurse, Anne Marie is aware. Maia BHATT is aware. Pt is aware.
--- NOTE | 2024-12-26 15:57 | ESPR_ITS ---
Documentation for date of: 12/26/24 Subjective Subjective Interval history: Patient failed to be discharged to Acute rehab on 12/25/2024. Pending acute rehab placement. Exam Vital Signs Temp Pulse Resp BP Pulse Ox O2 Del Method 98.3 F 93 16 93/65 95 Room Air 12/26/24 11:54 12/26/24 11:54 12/26/24 11:54 12/26/24 11:54 12/26/24 11:54 12/26/24 11:54 Narrative Exam General: No acute distress, well nourished, AAO x3 Eye: Normal conjunctiva, no scleral icterus HENT: Normocephalic, atraumatic, hearing intact to conversation at normal volume, moist oral mucosa Neck: Supple, non-tender, no JVD, no lymphadenopathy Lungs: Non-labored respirations, symmetric chest rise, Clear to auscultate bilaterally, No wheezing, rhonchi, crackles Heart: Peripheral pulses intact bilaterally, Regular Rate and Rhythm. Abdomen: Soft, non-tender, non-distended, no palpable masses Musculoskeletal: Normal range of motion and strength, No cyanosis or edema, No visible joint swelling Skin: Skin is warm, dry, no rashes or lesions. Psychiatric: Cooperative, appropriate mood and affect, Awake and alert, not agitated Neuro: Cranial nerves II-XII grossly intact. Strength 5/5 throughout. Sensations intact to light touch. Objective Labs 12/26/24 05:13 12/26/24 05:13 Labs: Laboratory Results - last 24 hr 12/26/24 05:13 WBC 4.9 RBC 5.00 Hgb 13.3 Hct 41.9 MCV 84 MCH 26.6 MCHC 31.7 RDW Std Deviation 48.3 H Plt Count 222 Neut % (Auto) 54 Lymph % (Auto) 28 [place] % (Auto) 11 Eos % (Auto) 6 Baso % (Auto) 1 Neut # (Auto) 2.7 Lymph # (Auto) 1.4 [place] # (Auto) 0.5 Eos # (Auto) 0.3 Baso # (Auto) 0.0 Immature Gran # (Auto) 0.01 H Absolute Nucleated RBC 0.00 Immature Gran % 0 Nucleated RBC % 0 Sodium 137 Potassium 4.3 Chloride 105 Carbon Dioxide 28.7 Anion Gap 3 L BUN 11 Creatinine 0.6 Estim Creat Clear Calc 85.6 eGFR > 60 BUN/Creatinine Ratio 18 Glucose 206 H Calculated Osmolality 279 Calcium 9.4 Corrected Calcium 9.4 Phosphorus 4.2 Magnesium 1.9 Total Bilirubin 0.3 AST 11 ALT < 7 L Alkaline Phosphatase 93 Total Protein 6.5 Albumin 4.0 Globulin 2.5 Albumin/Globulin Ratio 1.6 Quality Measures Quality Measures VTE prophylaxis Assessment & Plan Assessment Current Active Medications: Generic Name Dose Route Start Last Admin Trade Name Freq PRN Reason Stop Dose Admin Acetaminophen 650 mg 12/23/24 20:36 Acetaminophen 325 Mg Tablet PO 01/22/25 20:35 Q6H PRN Fever >100.3 Acetaminophen 650 mg 12/23/24 20:36 Acetaminophen 325 Mg Tablet PO 01/22/25 20:35 Q6H PRN PAIN SCALE 1-3 (mild Aspirin 81 mg 12/24/24 09:00 12/26/24 09:02 Aspirin Ec 81 Mg Tabec PO 01/23/25 08:59 81 mg QDAY CHRISTINE Administration Atorvastatin Calcium 80 mg 12/23/24 21:00 12/25/24 21:16 Atorvastatin Calcium 20 Mg Tablet PO 01/22/25 20:59 80 mg HS CHRISTINE Administration Citalopram Hydrobromide 40 mg 12/24/24 09:00 12/26/24 09:02 Citalopram 20 Mg Tablet PO 01/23/25 08:59 40 mg QDAY CHRISTINE Administration Clopidogrel Bisulfate 75 mg 12/24/24 09:00 12/26/24 09:01 Clopidogrel Bisulfate 75 Mg Tablet PO 01/23/25 08:59 75 mg QDAY CHRISTINE Administration Dextrose 25 ml 12/23/24 20:41 Dextrose 50%-Water Inj 50 Ml Syringe IV 01/22/25 20:40 Q15MIN PRN BG 50-70 responsive npo pt Dextrose 50 ml 12/23/24 20:41 Dextrose 50%-Water Inj 50 Ml Syringe IV 01/22/25 20:40 Q15MIN PRN BG <50 OR BG <70 & pt unresponsive Gabapentin 300 mg 12/23/24 21:00 12/26/24 09:02 Gabapentin 100 Mg Capsule PO 01/22/25 20:59 300 mg BID CHRISTINE Administration Glucagon 1 mg 12/23/24 20:41 Glucagon Inj 1 Mg Vial IM Q15MIN PRN BG <70, and no IV access Heparin Sodium (Porcine) 5,000 unit 12/23/24 22:00 12/26/24 14:33 Heparin Sod Inj 5000 Unit/Ml Vial SC 01/06/25 21:59 5,000 unit Q8HR CHRISTINE Administration Insulin Human Lispro 0 unit 12/23/24 21:00 12/26/24 11:38 Insulin Lispro (Admelog) 1 Unit/0.01 Ml Unit SC 01/22/25 20:59 3 unit ACHS CHRISTINE Administration Protocol Ondansetron HCl 4 mg 12/23/24 20:36 Ondansetron Inj 2 Mg/Ml Inj 2 Ml IVP 01/22/25 20:35 Q6H PRN NAUSEA OR VOMITING Protocol Sennosides 1 tab 12/23/24 21:10 Senna/Docusate Sod 1 Tab Tablet PO 01/22/25 21:09 QDAY PRN CONSTIPATION Protocol Plan Summary: Ms. Santizo is a 59 y/o female with PMH stroke?, TBI, T2DM, HTN, and migraines who presented to the ED on 12/22 with 1 week of dizziness, recurrent falls, and right sided weakness and paresthesias. Admitted for stroke management. CTA showed 95% stenosis of left carotid bifurcation and proximal left internal carotid. MRI/MRA w/ and w/o contrast showed occlusion of left common carotid artery. Transfer to tertiary center was denied. Dr. Geovany Harp, at [place], stated patient?s condition is likely chronic issue and recommended outpatient follow up upon discharge. ED course: BP 92-122/58-86. Labs significant for Na 135, glucose 356. Troponin, UDS unremarkable. UA 1.05 specific gravity, 4+ glucose, +LE, 4 RBC. Hip and pelvis XR negative for fracture. CT head w/o: negative for acute hemorrhage, mass effect, midline shift. CTA: No filling of proximal and mid left common carotid artery. Critical 95% stenosis left carotid bifurcation and proximal left internal carotid. No LVO. Carotid doppler: Right ICA 10-20% stenosis. Left common carotid artery no flow. Retrograde flow left common carotid artery. M RI/MRA w/ and w/o: Multiple embolic type acute ischemic infarct left frontal and left parietal. Occlusion of left common carotid artery. Opacification of distal left common carotid artery. Critical stenosis proximal left ICA but fills distally (indicative of some degree of collateralization). Subtle enhancement around left parietal infarcts. Consulted tele-neuro. NIHSS 5. Recommended loading dose aspirin and plavix with continued DAPT. Not a candidate for tPA or thrombectomy given time frame of symptoms. Dr. Escalera saw patient, recommended transferring to a tertiary center. Denied transfer to [facility] (Dr. Magana, vascular surgeon), [place] (neurointerventionalist, head of stroke team Dr. Geovany Harp). Dr. Harp stated that carotid occlusion is chronic and complete, with collateral circulation present. He does not believe revascularization would provide acute benefit and does not recommend transfer at this time. Hospital Course: Upon admission to the hospital, patient was given aspiring 81mg po daily, Plavix 75mg po daily, and Atorvastatin 80mg po daily. Labs showed HbA1c:13.2, T, Chol:235, LDL:140, TSH: 5.19. Patient's right arm weakness improved after 1 day. ECHO (12/23/2024) showed: Bubble study negative for any PFO or ASD, Left ventricle size normal and systolic function normal. Visually estimated ejection fraction 55-60%. Grade I diastolic dysfunction. Right ventricle size normal and systolic function normal. Estimated PASP 11 mmHg. No pulmonary hypertension.Mild tricuspid valve regurgitation and mild aortic valve sclerosis. Physical Therapy (12/24/2024) recommended acute rehab for recovery. Patient has high fall risk, with decreased ability to ambulate safely due to ataxic gait and multiple acute infarcts impacting decision making and safety awareness. With history of multiple falls, patient is unsafe to return home. Patient is made aware and was discharged to SNF Instructions: Take aspirin 81 mg , atorvastatin 80 mg, plavix 75 mg for 90 days, and follow up outpatient with Dr. Geovany Harp neurosurgery in [place], find below the information. Follow-up outpatient with neurology in 1 to 2 weeks after discharge, discuss medication and further plan You started on insulin, please monitor blood sugar daily, tight control of blood sugar is critical in your condition. follow up with PCP for further adjustment. Continue the rest of the home medication Return to ED anytime symptoms worsens. 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 Galindo and Dr. Odell (PGY-2) Dr. Angel (PGY-1) - Internal medicine resident Attending Provider Attestation/Addendum I have examined the patient, reviewed labs and imaging findings, discussed the case with the resident(s), and reviewed entered orders. I agree with the plan of care as outlined in this note. Dr. Mateo MD
--- NOTE | 2024-12-26 16:19 | PC.NURSE ---
REPORT GIVEN TO JANE POWELL AT [facility].
--- NOTE | 2024-12-26 17:00 | PC.NURSE ---
PATIENT REFUSED POST OFFICE MARKUP CLERK DR. LEE MADE AWARE.
== END 2024-12-26 19:05 | disposition skilled nursing facility (03) | DRG 45 ==
LOC: SERX 12-23 06:49 → SERHOLD 12-23 20:54 → S2NX 12-23 23:21 → S3SX 12-25 20:40
PROVIDERS: Nurse Practitioner Family; Student in an Organized Health Care Education/Training Program; Emergency Provider Family Medicine; PCP Physician Assistant Medical; Visit Provider Student in an Organized Health Care Education/Training Program
DX: I63.40 Cerebral infarction due to embolism of unspecified cerebral artery (principal); R29.6 Repeated falls; M25.551 Pain in right hip; G81.91 Hemiplegia, unspecified affecting right dominant side; E11.9 Type 2 diabetes mellitus without complications; F17.210 Nicotine dependence, cigarettes, uncomplicated; I10 Essential (primary) hypertension; R29.705 NIHSS score 5; I65.22 Occlusion and stenosis of left carotid artery; F39 Unspecified mood [affective] disorder; Z88.8 Allergy status to other drugs, medicaments and biological substances; Z79.84 Long term (current) use of oral hypoglycemic drugs; Z79.899 Other long term (current) drug therapy
CPT/HCPCS: 36415; 70450; 70496; 70498; 70553; 73522; 80048; 80053; 80061; 80307; 81001; 83036; 83735; 83880; 84100; 84439; 84443; 84484; 85025; 85610; 92507; 92523; 92610; 93005; 93225; 93306; 93880; 97163; 99285; A4649; A9577; J1644; J1815; Q9967; A9270

== ENCOUNTER 2025-02-25 20:13 | Emergency (ER) | payer MEDICAID, SELFPAY ==
[2025-02-25 20:14] VITALS: PULSE 90; RESP 18; O2SAT 95; BMI 21.2
--- NOTE | 2025-02-25 21:04 | PC.NURSE ---
PT ELOPED THE ER PRIOR TO BEING SEEN BY PROVIDER DUE TO LONG WAIT TIME.
== END 2025-02-25 21:05 | disposition left against medical advice (07) ==
LOC: SERX 21:18
DX: Z53.21 Procedure and treatment not carried out due to patient leaving prior to being seen by health care provider (principal)
CPT/HCPCS: 99281